=== PATIENT | female | born 1935 | race Caucasian/White ===

== ENCOUNTER 2017-08-12 13:39 | Inpatient (IN) | payer MEDICARE, OTHER, SELFPAY ==
[2017-08-03 11:21] VITALS: BP 116/54; PULSE 43; RESP 16; TEMP 36.9; O2SAT 96; BMI 44.6
--- NOTE | 2017-08-03 11:32 | SDCEKG_ITS ---
Test Reason : Blood Pressure : / mmHG Vent. Rate : 047 BPM Atrial Rate : 047 BPM P-R Int : 180 ms QRS Dur : 102 ms QT Int : 494 ms P-R-T Axes : 054 -18 003 degrees QTc Int : 437 ms Marked sinus bradycardia Low voltage QRS Cannot rule out Anterior infarct , age undetermined Abnormal ECG Confirmed by DEMETRIS CURRY, SHAUN ([id number]), film or videotape editor LIYA BECKETT ([id number]) on 08/06/2017 2:33:53 PM Referred By: Maksim Cevallos Confirmed By:SHAUN WILLSON MD
[2017-08-03 12:25] LABS: Hematocrit 39.3 % (37-47); Hemoglobin 12.3 g/dl (12.0-15.0); Mean Corp Hgb Conc 31.3 g/gl (32-36); Mean Corpuscular Hgb 30.1 pg (27.0-32.0); Mean Corpuscular Volume 96.1 fL (81-99); Mean Platelet Vol. 10.9 fl (6.2-12.0); Platelet Count 218 K/mm3 (150-450); RBC Distribution Width CV 13.3 % (11.6-14.6); RBC Distribution Width SD 46.1 fl (35.1-43.9); Red Blood Count 4.09 M/mm3 (4.2-5.4)
[2017-08-03 12:28] LABS: Scan Indicated on CBC? Y/N NO
[2017-08-03 12:50] LABS: Hemoglobin A1c 8.2 % (4.2-6.3)
[2017-08-03 13:08] LABS: BUN 22 mg/dL (7-18); Creatinine, Serum 1.27 mg/dL (0.55-1.02); Estimated Creatinine Clearance 29.71 ml/min; Glucose 205 mg/dL (74-106)
[2017-08-03 13:09] LABS: Anion Gap 5 (5-15); BUN/Creat Ratio 17.3 RATIO (10-20); Calcium,Total 10.2 mg/dL (8.5-10.1); Chloride 103 mmol/L (98-107); EST Glomerular Filtration Rate 43 mL/min (>60); Est Glom Filt Rate - Afr Amer 52 mL/min (>60); Potassium 4.8 mmol/L (3.5-5.1); Sodium Level 139 mmol/L (136-145); Thyroid Stim Hormone (TSH) 3.32 uIU/mL (0.358-3.74)
[2017-08-09 18:40] VITALS: BP 141/52; PULSE 54; RESP 18; TEMP 36.7; O2SAT 96
[2017-08-10] VITALS (22 sets, daily range): BP systolic 99–167; BP diastolic 33–80; PULSE 34–72; RESP 16–22; TEMP 36.5–36.9; O2SAT 91–97; BMI 44.6; BMI 44.2; BMI 44.1
--- NOTE | 2017-08-10 | BLB_PTH ---
PATIENT: CRISTOPHER LOZANO LOC: PCU U#:[id number] AGE/SX: 81/F ROOM: [facility] RE08/12/[address]: Dr. Maria Dolores Philip MD : [id number] BED: 1 DIS: 08/15/2017 SPEC #: [id number] RECD: 08/10/17 15:06 STATUS: FRANCHESCA KIMBERLYN #: [id number] PEYTON: 08/10/17 00:[address]: Maksim Cevallos DEPT: SURGICAL PATHOLOGY RECD BY: Gregory Burciaga ENTERED: 08/10/17 15:07 SP TYPE: TURB OTHR DR: Dr. Steven Ochoa DO Tissues: Urinary bladder, NOS Procedures: Surgery Specimen Level V HEADER OPERATION: Cystoscopy, TUR of bladder tumor PRE-OP DIAGNOSIS: Bladder tumor TISSUE SUBMITTED: Bladder tumor MICROSCOPIC DIAGNOSIS Urinary bladder, TUR: Papillary urothelial carcinoma. See cancer checklist below. AM:esmer 08/13/17 COMMENT BLADDER CANCER (TUR) SUMMARY: Procedure - TURBT Histologic type ? urothelial (transitional cell) carcinoma Associated epithelial lesions ? none identified Histologic grade ? low grade (WHO) Tumor configuration - papillary Adequacy of material for determining muscularis propria invasion - muscularis propria present and free of tumor. Lymph-Vascular invasion ? not identified Microscopic extent of tumor ? noninvasive papillary carcinoma Additional pathologic findings ? mild chronic inflammation. The above summary is in compliance with [employer] [place] [employer] (CAP) Cancer Protocols Checklist and [place] [employer] Committee on Cancer (AJCC), Staging Manual, 8th Ed. Reference is made to the patient?s previous bladder tumor, TUR ([id number]) in which papillary urothelial carcinoma (low-grade) was identified. Case has been reviewed in consultation with Dr. Elizabeth who concurs with the above diagnosis. IDC:SJ MICROSCOPIC DESCRIPTION Slides are reviewed. GROSS DESCRIPTION Received in fixative is one container labeled with the patient's name and designated bladder tumor. The specimen consists of multiple irregular fragments of light aldana soft tissue that in aggregate measure 2 x 1.5 x 0.2 cm. The specimen is totally submitted in one cassette. / PEACE:esmer 08/10/17 TC:0 CPT: 66887
[2017-08-10 11:11] LABS: Prothrombin Time Fingerstick 14.2 SEC (11.9-14.4)
[2017-08-10 11:36] LABS: Bedside Glucose 263 mg/dL (70-110)
--- NOTE | 2017-08-10 13:36 | PCM.DC.URO ---
Discharge Diet: Light diet - advance as tolerated Discharge Activity: Return to Normal Activity Call your doctor if your incision/area has: Continuous Slow Oozing, Sudden Increased Bleeding, Increased Pain/ Swelling, Increased Redness, Foul Smelling Discharge, Swelling at the incision site Suture Line Care: Avoid Pulling/Pushing, Avoid Pinching/Bending Additional Instructions: resume coumadin with no more blood in the urine. Allergies/Adverse Reactions: Allergies No Known Allergies Allergy (Verified 08/03/17 11:02) Medications to take at Discharge Furosemide 60 mg PO BID 02/04/16 Isosorbide Mononitrate [Isosorbide Mononitrate ER] 60 mg PO DAILY 02/04/16 Lisinopril 5 mg PO DAILY 02/04/16 Metformin HCl 500 mg PO DAILY 02/04/16 Simvastatin 40 mg PO QHS 02/04/16 Amlodipine [Norvasc] 5 mg PO DAILY 02/26/17 Calcium Carbonate/Vitamin D3 [Calcium 500-Vit D3 600 Caplet] 1 each PO LUNCH 02/26/17 Duloxetine HCl 60 mg PO BID 02/26/17 Insulin Aspart Protam & Aspart [Novolog Mix 70-30 Vial] 40 unit SQ BIDCM 02/26/17 Levothyroxine [Synthroid] 125 mcg PO DAILY 02/26/17 Metoprolol Tartrate [Lopressor (beta misty)] 50 mg PO BID 02/26/17 Nitroglycerin [Nitrostat] 0.4 mg SUBLINGUAL Q5M PRN 02/26/17 Omeprazole [Prilosec] 20 mg PO BID 02/26/17 Potassium Chloride [Klor-Con 10] 10 meq PO DAILY 02/26/17 Aspirin E.C. [Ecotrin] 81 mg PO DAILY@0800 08/03/17 Warfarin Sodium [Coumadin] 5 mg PO SUMOTUTHFR 08/03/17 Warfarin [Coumadin] 7.5 mg PO WESA 08/03/17 Primary Care Physician: Steven Ochoa DO [Primary Care Provider] - Please Follow Up With: Maksim Cevallos MD When: August 30 at 4pm
[2017-08-10] MEDS: Cefazolin 2 GM in 0.9% Normal Saline 100 ML IV (13:40)
--- NOTE | 2017-08-10 14:29 | OP.PCM_ITS ---
Problem List (1) Bladder cancer Status: Acute Qualifiers: Bladder location: neck Qualified Code(s): C67.5 - Malignant neoplasm of bladder neck Report of Operation Date of Procedure: 08/10/17 Pre-Operative Diagnosis: Bladder cancer at the bladder neck, about 2.5 cm. Post-Operative Diagnosis: Same Surgery/Procedure Performed:: Transurethral resection of bladder tumor 2.5 cm at the bladder neck circumferentially. Description of Surgical Findings:: 81-year-old female who and follow-up visit was found to have recurrence of her bladder tumor at the bladder neck she presents to the hospital today for surgery for resection of bladder tumor. Patient taken back to the operating room after smooth induction of general anesthesia she was placed in dorsal lithotomy position the urethra and vaginal area were prepped and draped in usual sterile fashion went into the bladder with a 21 [place] rigid cystourethroscope did a neal cystoscopy with 30 and 70? lens she had bladder tumor growing from around her bladder neck circumferentially around 2.5 cm in size and total. No other tumors seen within her bladder left to right ureteral orifice on involved. I then switched over to the resectoscope we used the small loop resectoscope and I resected this tumor circumferentially at the bladder neck tumors were removed from the bladder I then cauterized circumferentially at the bladder neck making sure I got all this resection sites obtained good hemostasis I then inspected the bladder again no other tumors are seen within the bladder to drain the bladder with a catheter in and put 40 cc of mitomycin-C into the bladder remove the catheter patient's anesthetic was reversed plan to see her back in a few weeks for checkup and then she will need follow-up surveillance cystoscopy in 3 months. Type of Anesthesia:: General Drains: none - Admit VTE Documentation VTE Present on Admission: No VTE Mechan Device Prophylaxis: SCD's VTE Pharm Prophylaxis ordered?: No Reason prophylaxis not ordered:: Treatment Not Indicated
--- NOTE | 2017-08-10 15:27 | EKG12_ITS ---
Test Reason : Blood Pressure : / mmHG Vent. Rate : 037 BPM Atrial Rate : 030 BPM P-R Int : 000 ms QRS Dur : 100 ms QT Int : 594 ms P-R-T Axes : 000 -20 021 degrees QTc Int : 466 ms Junctional bradycardia Low voltage QRS Abnormal ECG When compared with ECG of 03-AUG-2017 11:31, Junctional rhythm has replaced Sinus rhythm Confirmed by MARGARITA ALFARO ([id number]), editorial director LIYA BECKETT ([id number]) on 08/16/2017 2:43:32 PM Referred By: Maksim Cevallos Confirmed By:MARGARITA ALFARO
--- NOTE | 2017-08-10 16:50 | PCM.CONS.GEN ---
<Srinivas Souza - Last Filed: 08/10/17 16:50> Problem List (1) EKG abnormalities Status: Acute (2) Bladder cancer Status: Chronic Qualifiers: Bladder location: neck Qualified Code(s): C67.5 - Malignant neoplasm of bladder neck (3) HTN (hypertension) Status: Chronic Qualifiers: Hypertension type: essential hypertension Qualified Code(s): I10 - Essential (primary) hypertension (4) Hypothyroidism Status: Chronic Qualifiers: Hypothyroidism type: unspecified Qualified Code(s): E03.9 - Hypothyroidism, unspecified (5) Morbid obesity Status: Chronic (6) Diabetes type 2, uncontrolled Status: Chronic Qualifiers: Diabetes mellitus termite renewal inspector insulin use: with termite renewal inspector use Diabetes mellitus complication status: with neurologic complications Diabetes mellitus complication detail: with polyneuropathy Qualified Code(s): E11.42 - Type 2 diabetes mellitus with diabetic polyneuropathy (7) Sleep apnea Status: Chronic Qualifiers: Sleep apnea type: obstructive Qualified Code(s): G47.33 - Obstructive sleep apnea (adult) (pediatric) (8) Pulmonary HTN Status: Chronic (9) CAD, 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 5 (10) Ulcer of lower extremity due to diabetes Status: Chronic (11) GERD (gastroesophageal reflux disease) Status: Chronic Qualifiers: Esophagitis presence: without esophagitis Qualified Code(s): K21.9 - Gastro-esophageal reflux disease without esophagitis (12) IBS (irritable bowel syndrome) Status: Chronic Qualifiers: Irritable bowel syndrome type: unspecified Qualified Code(s): K58.9 - Irritable bowel syndrome without diarrhea (13) Hyperlipidemia Status: Chronic (14) 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 Status: Chronic Qualifiers: Congestive heart failure chronicity: chronic Qualified Code(s): I50.32 - Chronic diastolic (congestive) heart failure Reason for Consult Date of Consultation: 08/10/17 Reason for Consultation: Post op EKG changes History of Present Illness: The patient is a 81 year old F who underwent a TURBT with Dr. Mart arredondo, who is consulting us post op for new EKG changes. The patient is suspected to have bladder cancer and myomacin C has been instilled. During the surgery she developed new PVCs, and a post op EKG revealed bradycardia with a rate of 37 read as junctional. She had bradycardia in the 40s preop and reportedly her baseline pulse is slow, however this is slower than normal and the PVCs are new. There is also concern that she is unable to be weaned off of O2 at this time. She sats in the 100's, however is desaturating when taken off 2 liters by the recovery nurses. Otherwise she is very comfortable post op at this time. She denies CP. She says she feels mildly SOB. She has no abdominal pain. No dizziness/LH/Palp. She has a hx of CAD with prior CABG x 5, AF, CHF, VENESSA, IPS, T2DM, anxiety/depression, and some underlying dementia. She is somewhat confused recovering from sedation. [] Past Medical History Past Medical History (Chronic Problems): Chronic Problems Bladder cancer (Chronic) HTN (hypertension) (Chronic) Diabetic neuropathy (Chronic) Hypothyroidism (Chronic) Morbid obesity (Chronic) Diabetes type 2, uncontrolled (Chronic) Sleep apnea (Chronic) Pulmonary HTN (Chronic) CAD, multiple vessel (Chronic) S/P CABG x 5 Ulcer of lower extremity due to diabetes (Chronic) GERD (gastroesophageal reflux disease) (Chronic) IBS (irritable bowel syndrome) (Chronic) Hyperlipidemia (Chronic) 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 (Chronic) Allergies No Known Allergies Allergy (Verified 08/03/17 11:02) Home Medications: Ambulatory Orders Medication Instructions Recorded Furosemide 60 mg PO BID 02/04/16 Isosorbide Mononitrate [Isosorbide 60 mg PO DAILY 02/04/16 Mononitrate ER] Lisinopril 5 mg PO DAILY 02/04/16 Metformin HCl 500 mg PO DAILY 02/04/16 Simvastatin 40 mg PO QHS 02/04/16 Amlodipine [Norvasc] 5 mg PO DAILY 02/26/17 Calcium Carbonate/Vitamin D3 1 each PO LUNCH 02/26/17 [Calcium 500-Vit D3 600 Caplet] Duloxetine HCl 60 mg PO BID 02/26/17 Insulin Aspart Protam & Aspart 40 unit SQ BIDCM 02/26/17 [Novolog Mix 70-30 Vial] Levothyroxine [Synthroid] 125 mcg PO DAILY 02/26/17 Metoprolol Tartrate [Lopressor 50 mg PO BID 02/26/17 (beta misty)] Nitroglycerin [Nitrostat] 0.4 mg SUBLINGUAL Q5M PRN 02/26/17 Omeprazole [Prilosec] 20 mg PO BID 02/26/17 Potassium Chloride [Klor-Con 10] 10 meq PO DAILY 02/26/17 Aspirin E.C. [Ecotrin] 81 mg PO DAILY@0800 08/03/17 Warfarin Sodium [Coumadin] 5 mg PO SUMOTUTHFR 08/03/17 Warfarin [Coumadin] 7.5 mg PO WESA 08/03/17 Surgical History: angioplasty, cataract, coronary bypass surgery, - - Pilonidal cyst removed Psychiatric History: Anxiety, Depression RUG CLEANER History: No pertinent RUG CLEANER history Lives: With Family Smoking Status: Never smoker Tobacco Use: Non-smoker Alcohol: Occasional Drugs: None - *Family History Paternal History Items: Cancer, Heart Disease Maternal History Items: Heart Disease Review of Systems Constitutional: Denies: Chills, Fever, Weight Change HEENT: Denies: Head Aches, Sinus Congestion, Sinus Drainage Cardiovascular: Denies: Chest Pain, Chest Tightness, Palpitations Respiratory: Reports: Shortness of Breath. Denies: Cough, Pleuritic Pain, Shortness of breath at rest, Shortness of breath upon exertion, Sputum production, Wheezing Gastrointestinal: Denies: Abdominal Pain, Nausea, Vomiting Genitourinary: Denies: Dysuria Musculoskeletal: Denies: Joint Pain, Joint Tenderness Skin: Denies: Rash, Wounds Neurological: Denies: Numbness, Tingling, Focal weakness Psychiatric: Denies: Anxiety, Depression, Homicidal Ideations, Suicidal Ideations Hematologic/ Lymphatic: Denies: Easy Bruising, Easy Bleeding Patient Problems: Active and Suspected Problems EKG abnormalities (Acute) - Physical Exam General: Alert, Oriented x3, Cooperative HEENT: Atraumatic, PERRLA, EOMI, Normocephalic Neck: Supple, No JVD, Negative Carotid Bruits Lungs: Clear to auscultation, Normal air movement Cardiovascular: Regular rate, No murmurs Abdomen: Bowel Sounds Present, Soft, Non Tender Extremities: No edema, Capillary Refill Less than 3 Seconds Skin: No rashes, No breakdown Musculoskeletal: No Tenderness to Palpation of Joints or Extremities Neurological: Cranial nerves II-XII grossly intact Psych/Mental Status: Normal Affect, Appropriate, Alert and oriented to time, place, person, mood and affect Vital Signs Temp Pulse Resp BP Pulse Ox 97.7 F L 40 L 16 117/74 97 08/10/17 14:52 08/10/17 16:00 08/10/17 16:00 08/10/17 16:00 08/10/17 16:00 Oxygen Flow Rate (L/min) 2 Oxygen Delivery Method Nasal Cannula Weight: 114.305 kg Body Mass Index (BMI) 44.6 Finger Stick Blood Glucose 237 Laboratory Tests Past 24 Hrs 08/10/17 08/10/17 11:06 16:11 POC PT 14.2 INR 1.20 Troponin I Pending POC Glucose 08/10/17 11:07 POC Glucose 263 H Assessment/Plan Active and Suspected Problems EKG abnormalities (Acute) 1. Post op EKG changes - this includes Marked bradycardia, junctional rhythm, and PVCs. She used to follow Dr. Arauz, since his passing she has been seeing a PA in his office. She has a hx of preop bradycardia but not this marked. Repeat EKG in AM. Trend troponins. Obtain echocardiogram. Hold metoprolol. 2. Post op increased O2 demand - unable to be weaned post op. suspect atelectasis - IS, lungs are clear. If SOB provide Albuterol prn, duonebs. 3. Hx CAD with CABG x 5 - on imdur, norvasc, statin, asa, metoprolol, lisinopril 4. Hx PAF - warfarin and metoprolol. Trend INR. Maintain on tele. 5. VENESSA - request to bring CPAP in. If none at home consider autopap overnight. 6. DMt2 - hold metformin. Sliding scale 7. Hypothyroidism - check tsh 8. Bladder cancer s/p TURBT post op D#0 s/p myomycin C DVT ppx: SCDs check INR This patient was seen by Srinivas Souza PA-C under the supervision of Doctor Randall. <Ingrid Randall - Last Filed: 08/10/17 19:42> Reason for Consult History of Present Illness: The patient is a 81 year old F [] Past Medical History Allergies No Known Allergies Allergy (Verified 08/03/17 11:02) - Physical Exam Vital Signs Temp Pulse Resp BP Pulse Ox 97.9 F 48 L 16 149/57 H 92 08/10/17 17:46 08/10/17 17:46 08/10/17 17:46 08/10/17 17:46 08/10/17 17:46 Oxygen Flow Rate (L/min) 2 Oxygen Delivery Method Room Air Weight: 252 lb Body Mass Index (BMI) 44.6 Finger Stick Blood Glucose 225 Intake and Output for Last 24 Hours 08/08/17 08/09/17 08/10/17 23:59 23:59 23:59 Intake Total 600 / 600 Output Total 300 / 300 Balance 300 / 300 Laboratory Tests Past 24 Hrs 08/10/17 08/10/17 11:06 16:11 POC PT 14.2 INR 1.20 Troponin I < 0.02 POC Glucose 08/10/17 08/10/17 17:01 11:07 POC Glucose 225 H 263 H Assessment/Plan Hospitalist note: I am seeing this patient in conjunction with Srinivas Souza. I independently seen and examined the patient. Consultation above and EKGs reviewed and I agree with the above treatment plan. Patient underwent transurethral resection of bladder tumor today and postoperatively, patient has been bradycardic and hypoxic. Her heart rate has been as low as in the mid 30s. Her blood pressure remained stable., Her pulse ox was low and she required up to 6 L of oxygen but she denies any shortness of breath. At this time, her oxygen is down to 2 L. Patient seen and examined. She denied any chest pain or shortness of breath. She denied dizziness or lightheadedness. She denies syncope or presyncope. I reviewed her chart from the previous visits and her heart rate has been in the 40s and 50s but never been down to 30s. She is on beta-blockers and she did take her medication this morning. Her EKG reviewed and revealed sinus bradycardia. Other EKG revealed heart rate in the 30s with junctional rhythm. - Physical Exam General: Alert, Oriented x3, Cooperative, No apparent distress. HEENT: Atraumatic, PERRLA, EOMI. Neck: Supple, No JVD, Negative Carotid Bruits, Trachea Midline, Thyroid Normal. Lungs: Diminished breath sounds bilateral, otherwise clear, No rhonchi, No wheeze, No rales. Cardiovascular: Regular rate, bradycardia, Normal S1, Normal S2, PMI Normal. Abdomen: Bowel Sounds Present, Soft, Non Tender, Non-Distended, No Hepato-splenomegaly. Extremities: No clubbing, No cyanosis, No edema Skin: No rashes, No breakdown Neurological: Neuro grossly intact. Assessment and plan: #1 sinus bradycardia/junctional rhythm: EKG reviewed, revealed sinus bradycardia, no acute ischemic changes. First troponin is negative. Plan: Serial cardiac enzymes, repeat EKG tomorrow morning, check TSH, stat CBC and BMP, check serum magnesium, 2D echocardiogram. #2 hypoxia: Oxygenation has been improving and her oxygen requirement has been decreasing. Chest is clear to auscultation. #3 status post transurethral resection of bladder cancer: Postop day 0, urology is managing. #4 other chronic medical problems: Stable as mentioned above, continue current treatment being. This note was generated with [employer] dictation software. It may contain incorrect words, spelling, and punctuation that were not noted in checking the note before signing. Code Visit Inpatient E&M: 62421 Init Hosp L2
--- NOTE | 2017-08-10 17:04 | CON.PCM_ITS ---
<Srinivas Souza - Last Filed: 08/10/17 16:50> Problem List (1) EKG abnormalities Status: Acute (2) Bladder cancer Status: Chronic Qualifiers: Bladder location: neck Qualified Code(s): C67.5 - Malignant neoplasm of bladder neck (3) HTN (hypertension) Status: Chronic Qualifiers: Hypertension type: essential hypertension Qualified Code(s): I10 - Essential (primary) hypertension (4) Hypothyroidism Status: Chronic Qualifiers: Hypothyroidism type: unspecified Qualified Code(s): E03.9 - Hypothyroidism , unspecified (5) Morbid obesity Status: Chronic (6) Diabetes type 2, uncontrolled Status: Chronic Qualifiers: Diabetes mellitus nursing home 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 Diabetes mellitus complication status: with neurologic complications Diabetes mellitus complication detail: with polyneuropathy Qualified Code(s): E11.42 - Type 2 diabetes mellitus with diabetic polyneuropathy (7) Sleep apnea Status: Chronic Qualifiers: Sleep apnea type: obstructive Qualified Code(s): G47.33 - Obstructive sleep apnea (adult) (pediatric) (8) Pulmonary HTN Status: Chronic (9) CAD, 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 5 (10) Ulcer of lower extremity due to diabetes Status: Chronic (11) GERD (gastroesophageal reflux disease) Status: Chronic Qualifiers: Esophagitis presence: without esophagitis Qualified Code(s): K21.9 - Gastro -esophageal reflux disease without esophagitis (12) IBS (irritable bowel syndrome) Status: Chronic Qualifiers: Irritable bowel syndrome type: unspecified Qualified Code(s): K58.9 - Irritable bowel syndrome without diarrhea (13) Hyperlipidemia Status: Chronic (14) 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 Status: Chronic Qualifiers: Congestive heart failure chronicity: chronic Qualified Code(s): I50.32 - Chronic diastolic (congestive) heart failure Reason for Consult Date of Consultation: 08/10/17 Reason for Consultation: Post op EKG changes History of Present Illness: The patient is a 81 year old F who underwent a TURBT with Dr. Mart arredondo, who is consulting us post op for new EKG changes. The patient is suspected to have bladder cancer and myomacin C has been instilled. During the surgery she developed new PVCs, and a post op EKG revealed bradycardia with a rate of 37 read as junctional. She had bradycardia in the 40s preop and reportedly her baseline pulse is slow, however this is slower than normal and the PVCs are new. There is also concern that she is unable to be weaned off of O2 at this time. She sats in the 100's, however is desaturating when taken off 2 liters by the recovery nurses. Otherwise she is very comfortable post op at this time. She denies CP. She says she feels mildly SOB. She has no abdominal pain. No dizziness/LH/Palp. She has a hx of CAD with prior CABG x 5, AF, CHF, VENESSA, IPS, T2DM, anxiety/depression, and some underlying dementia. She is somewhat confused recovering from sedation. [] Past Medical History Past Medical History (Chronic Problems): Chronic Problems Bladder cancer (Chronic) HTN (hypertension) (Chronic) Diabetic neuropathy (Chronic) Hypothyroidism (Chronic) Morbid obesity (Chronic) Diabetes type 2, uncontrolled (Chronic) Sleep apnea (Chronic) Pulmonary HTN (Chronic) CAD, multiple vessel (Chronic) S/P CABG x 5 Ulcer of lower extremity due to diabetes (Chronic) GERD (gastroesophageal reflux disease) (Chronic) IBS (irritable bowel syndrome) (Chronic) Hyperlipidemia (Chronic) 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 (Chronic) Allergies No Known Allergies Allergy (Verified 08/03/17 11:02) Home Medications: Ambulatory Orders Medication Instructions Recorded Furosemide 60 mg PO BID 02/04/16 Isosorbide Mononitrate [Isosorbide 60 mg PO DAILY 02/04/16 Mononitrate ER] Lisinopril 5 mg PO DAILY 02/04/16 Metformin HCl 500 mg PO DAILY 02/04/16 Simvastatin 40 mg PO QHS 02/04/16 Amlodipine [Norvasc] 5 mg PO DAILY 02/26/17 Calcium Carbonate/Vitamin D3 1 each PO LUNCH 02/26/17 [Calcium 500-Vit D3 600 Caplet] Duloxetine HCl 60 mg PO BID 02/26/17 Insulin Aspart Protam & Aspart 40 unit SQ BIDCM 02/26/17 [Novolog Mix 70-30 Vial] Levothyroxine [Synthroid] 125 mcg PO DAILY 02/26/17 Metoprolol Tartrate [Lopressor 50 mg PO BID 02/26/17 (beta misty)] Nitroglycerin [Nitrostat] 0.4 mg SUBLINGUAL Q5M PRN 02/26/17 Omeprazole [Prilosec] 20 mg PO BID 02/26/17 Potassium Chloride [Klor-Con 10] 10 meq PO DAILY 02/26/17 Aspirin E.C. [Ecotrin] 81 mg PO DAILY@0800 08/03/17 Warfarin Sodium [Coumadin] 5 mg PO SUMOTUTHFR 08/03/17 Warfarin [Coumadin] 7.5 mg PO WESA 08/03/17 Surgical History: angioplasty, cataract, coronary bypass surgery, - - Pilonidal cyst removed Psychiatric History: Anxiety, Depression PHYSICAL LABORATORY ASSISTANT History: No pertinent PHYSICAL LABORATORY ASSISTANT history Lives: With Family Smoking Status: Never smoker Tobacco Use: Non-smoker Alcohol: Occasional Drugs: None - *Family History Paternal History Items: Cancer, Heart Disease Maternal History Items: Heart Disease Review of Systems Constitutional: Denies: Chills, Fever, Weight Change HEENT: Denies: Head Aches, Sinus Congestion, Sinus Drainage Cardiovascular: Denies: Chest Pain, Chest Tightness, Palpitations Respiratory: Reports: Shortness of Breath. Denies: Cough, Pleuritic Pain, Shortness of breath at rest, Shortness of breath upon exertion, Sputum production, Wheezing Gastrointestinal: Denies: Abdominal Pain, Nausea, Vomiting Genitourinary: Denies: Dysuria Musculoskeletal: Denies: Joint Pain, Joint Tenderness Skin: Denies: Rash, Wounds Neurological: Denies: Numbness, Tingling, Focal weakness Psychiatric: Denies: Anxiety, Depression, Homicidal Ideations, Suicidal Ideations Hematologic/ Lymphatic: Denies: Easy Bruising, Easy Bleeding Patient Problems: Active and Suspected Problems EKG abnormalities (Acute) - Physical Exam General: Alert, Oriented x3, Cooperative HEENT: Atraumatic, PERRLA, EOMI, Normocephalic Neck: Supple, No JVD, Negative Carotid Bruits Lungs: Clear to auscultation, Normal air movement Cardiovascular: Regular rate, No murmurs Abdomen: Bowel Sounds Present, Soft, Non Tender Extremities: No edema, Capillary Refill Less than 3 Seconds Skin: No rashes, No breakdown Musculoskeletal: No Tenderness to Palpation of Joints or Extremities Neurological: Cranial nerves II-XII grossly intact Psych/Mental Status: Normal Affect, Appropriate, Alert and oriented to time, place, person, mood and affect Vital Signs Temp Pulse Resp BP Pulse Ox 97.7 F L 40 L 16 117/74 97 08/10/17 14:52 08/10/17 16:00 08/10/17 16:00 08/10/17 16:00 08/10/17 16:00 Oxygen Flow Rate (L/min) 2 Oxygen Delivery Method Nasal Cannula Weight: 114.305 kg Body Mass Index (BMI) 44.6 Finger Stick Blood Glucose 237 Laboratory Tests Past 24 Hrs 08/10/17 08/10/17 11:06 16:11 POC PT 14.2 INR 1.20 Troponin I Pending POC Glucose 08/10/17 11:07 POC Glucose 263 H Assessment/Plan Active and Suspected Problems EKG abnormalities (Acute) 1. Post op EKG changes - this includes Marked bradycardia, junctional rhythm, and PVCs. She used to follow Dr. Arauz, since his passing she has been seeing a PA in his office. She has a hx of preop bradycardia but not this marked. Repeat EKG in AM. Trend troponins. Obtain echocardiogram. Hold metoprolol. 2. Post op increased O2 demand - unable to be weaned post op. suspect atelectasis - IS, lungs are clear. If SOB provide Albuterol prn, duonebs. 3. Hx CAD with CABG x 5 - on imdur, norvasc, statin, asa, metoprolol, lisinopril 4. Hx PAF - warfarin and metoprolol. Trend INR. Maintain on tele. 5. VENESSA - request to bring CPAP in. If none at home consider autopap overnight. 6. DMt2 - hold metformin. Sliding scale 7. Hypothyroidism - check tsh 8. Bladder cancer s/p TURBT post op D#0 s/p myomycin C DVT ppx: SCDs check INR This patient was seen by Srinivas Souza PA-C under the supervision of Doctor Randall. <Ingrid Randall - Last Filed: 08/10/17 19:42> Reason for Consult History of Present Illness: The patient is a 81 year old F [] Past Medical History Allergies No Known Allergies Allergy (Verified 08/03/17 11:02) - Physical Exam Vital Signs Temp Pulse Resp BP Pulse Ox 97.9 F 48 L 16 149/57 H 92 08/10/17 17:46 08/10/17 17:46 08/10/17 17:46 08/10/17 17:46 08/10/17 17:46 Oxygen Flow Rate (L/min) 2 Oxygen Delivery Method Room Air Weight: 252 lb Body Mass Index (BMI) 44.6 Finger Stick Blood Glucose 225 Intake and Output for Last 24 Hours 08/08/17 08/09/17 08/10/17 23:59 23:59 23:59 Intake Total 600 / 600 Output Total 300 / 300 Balance 300 / 300 Laboratory Tests Past 24 Hrs 08/10/17 08/10/17 11:06 16:11 POC PT 14.2 INR 1.20 Troponin I < 0.02 POC Glucose 08/10/17 08/10/17 17:01 11:07 POC Glucose 225 H 263 H Assessment/Plan Hospitalist note: I am seeing this patient in conjunction with Srinivas Souza. I independently seen and examined the patient. Consultation above and EKGs reviewed and I agree with the above treatment plan. Patient underwent transurethral resection of bladder tumor today and postoperatively, patient has been bradycardic and hypoxic. Her heart rate has been as low as in the mid 30s. Her blood pressure remained stable., Her pulse ox was low and she required up to 6 L of oxygen but she denies any shortness of breath. At this time, her oxygen is down to 2 L. Patient seen and examined. She denied any chest pain or shortness of breath. She denied dizziness or lightheadedness. She denies syncope or presyncope. I reviewed her chart from the previous visits and her heart rate has been in the 40s and 50s but never been down to 30s. She is on beta- blockers and she did take her medication this morning. Her EKG reviewed and revealed sinus bradycardia. Other EKG revealed heart rate in the 30s with junctional rhythm. - Physical Exam General: Alert, Oriented x3, Cooperative, No apparent distress. HEENT: Atraumatic, PERRLA, EOMI. Neck: Supple, No JVD, Negative Carotid Bruits, Trachea Midline, Thyroid Normal. Lungs: Diminished breath sounds bilateral, otherwise clear, No rhonchi, No wheeze, No rales. Cardiovascular: Regular rate, bradycardia, Normal S1, Normal S2, PMI Normal. Abdomen: Bowel Sounds Present, Soft, Non Tender, Non-Distended, No Hepato- splenomegaly. Extremities: No clubbing, No cyanosis, No edema Skin: No rashes, No breakdown Neurological: Neuro grossly intact. Assessment and plan: #1 sinus bradycardia/junctional rhythm: EKG reviewed, revealed sinus bradycardia , no acute ischemic changes. First troponin is negative. Plan: Serial cardiac enzymes, repeat EKG tomorrow morning, check TSH, stat CBC and BMP, check serum magnesium, 2D echocardiogram. #2 hypoxia: Oxygenation has been improving and her oxygen requirement has been decreasing. Chest is clear to auscultation. #3 status post transurethral resection of bladder cancer: Postop day 0, urology is managing. #4 other chronic medical problems: Stable as mentioned above, continue current treatment being. This note was generated with [employer] dictation software. It may contain incorrect words, spelling, and punctuation that were not noted in checking the note before signing. Code Visit Inpatient E&M: 79724 Init Hosp L2
[2017-08-10 17:06] LABS: Bedside Glucose 225 mg/dL (70-110)
--- NOTE | 2017-08-10 17:06 | ECHOD_ITS ---
Reason For Study: Abn EKG Procedure This was a 2D Doppler, Color Flow transthoracic echocardiogram. The study was technically difficult. Did not use Definity due to increased PAP. Exam performed portable in patient room. Left Ventricle Normal size and thickness. The estimated ejection fraction is 65 %. Stage 2 diastolic dysfunction. No regional wall motion abnormalities noted. Right Ventricle Mildly dilated right ventricle. Normal systolic function. Atria The left atrium is moderately enlarged. The right atrium is mildly enlarged. Normal atrial septum. Mitral Valve Mild diffuse mitral valve thickening. Severe mitral annular calcification extending into the posterior leaflet. Mild mitral valve stenosis. Tricuspid Valve Normal tricuspid valve. Mild (1+) tricuspid valve insufficiency. Right ventricular systolic pressure estimated to be 53 mmHg. Moderate pulmonary hypertension. Aortic Valve Trisinus/trileaflet aortic valve. Mild diffuse aortic valve thickening. Pulmonic Valve The pulmonic valve is not well visualized. Great Vessels Normal aortic root. Mild atherosclerosis of the aortic arch. Normal inferior vena cava. Inferior vena cava collapse with sniff. Pericardium/Pleural No pericardial effusion. MMode/2D Measurements & Calculations LVIDd: 4.6 cm IVSd: 1.1 cm LVOT diam: 2.0 cm LVIDs: 2.8 cm LVPWd: 0.90 cm LVOT area: 3.0 cm2 RVDd: 4.3 cm FS: 38.9 % Ao root diam: 2.5 cm LAV(MOD-bp): 67.5 ml LA A4 area: 22.8 cm2 LA dimension: 4.0 cm LAV(MOD-bp) Indexed: 31.7 ml/m2 LAV(MOD-sp2): 78.2 ml LAV(MOD-sp4): 59.1 ml RA A4 area: 20.5 cm2 Time Measurements MV dec time: 0.17 sec Doppler Measurements & Calculations MV E max dagoberto: 128.1 cm/sec Lat Peak E' Dagoberto: 8.8 cm/sec Med Peak E' Dagoberto: 5.7 cm/sec MV A max dagoberto: 119.1 cm/sec E/E' lat: 14.6 E/E' med: 22.6 MV E/A: 1.1 MV V2 max: 144.4 cm/sec MV P1/2t max dagoberto: 137.2 cm/sec Ao V2 max: 229.4 cm/sec MV max P.3 mmHg MV P1/2t: 107.8 msec Ao max P.1 mmHg MV V2 mean: 94.9 cm/sec MV dec slope: 372.7 cm/sec2 Ao V2 mean: 155.2 cm/sec MV mean P.9 mmHg MVA(P1/2t): 2.0 cm2 Ao mean P.8 mmHg MV V2 VTI: 49.6 cm Ao V2 VTI: 41.0 cm MVA(VTI): 1.8 cm2 SABINO(I,D): 2.2 cm2 SABINO(V,D): 1.9 cm2 LV V1 max: 140.2 cm/sec SV(LVOT): 90.6 ml PA V2 max: 135.3 cm/sec LV V1 max P.9 mmHg LV V1 mean P.8 mmHg LV V1 mean: 104.8 cm/sec LV V1 VTI: 29.8 cm TR max dagoberto: 346.4 cm/sec TR max P.0 mmHg Interpretation Summary The estimated ejection fraction is 65 %. Stage 2 diastolic dysfunction. The left atrium is moderately enlarged. Mild mitral valve stenosis. Mild (1+) tricuspid valve insufficiency. Right ventricular systolic pressure estimated to be 53 mmHg. Moderate pulmonary hypertension. The study was technically difficult. There is no comparison study available. Ordering Physician: Srinivas Souza Referring Physician: Steven Ochoa Performed By: Keara Gao RDCS, RVT
[2017-08-10 20:44] LABS: Absolute Lymphocyte Count 0.86 X10^3/ul (0.83-4.51); Absolute Neutrophil Count 9.3 X10^3/uL (2.0-7.7); Basophil# 0.02 X10^3/uL; Basophil% 0.2 % (0-1); Eosinophil# 0.08 X10^3/uL; Eosinophils% 0.7 % (0-5); Hematocrit 35.2 % (37-47); Hemoglobin 11.2 g/dl (12.0-15.0); Lymphocyte # 0.86 X10^3/ul (4.0); Lymphocyte % 7.8 % (19-41); Mean Corp Hgb Conc 31.8 g/gl (32-36); Mean Corpuscular Hgb 30.3 pg (27.0-32.0); Mean Corpuscular Volume 95.1 fL (81-99); Mean Platelet Vol. 10.9 fl (6.2-12.0); Monocyte# 0.74 X10^3/uL; Monocyte% 6.7 % (0-10); Neutrophil % 84.4 % (47-70); Platelet Count 252 K/mm3 (150-450); RBC Distribution Width CV 13.4 % (11.6-14.6); RBC Distribution Width SD 46.3 fl (35.1-43.9)
[2017-08-10 20:47] LABS: POSITIVE COUNT NO; POSITIVE DIFFERENTIAL NO; POSITIVE MORPHOLOGY NO
[2017-08-10 20:56] LABS: International Normalized Ratio 1.2; Prothrombin Time (Protime)PT. 15.3 SECONDS (11.7-14.9)
[2017-08-10] MEDS: 0.9% Normal Saline 1,000 ML 30 ML IV (21:02)
[2017-08-10 21:07] LABS: Anion Gap 8 (5-15); BUN 21 mg/dL (7-18); BUN/Creat Ratio 17.9 RATIO (10-20); Calcium,Total 9.6 mg/dL (8.5-10.1); Chloride 104 mmol/L (98-107); Creatinine, Serum 1.17 mg/dL (0.55-1.02); EST Glomerular Filtration Rate 47 mL/min (>60); Est Glom Filt Rate - Afr Amer 57 mL/min (>60); Estimated Creatinine Clearance 32.25 ml/min; Glucose 281 mg/dL (74-106); Potassium 3.9 mmol/L (3.5-5.1); Sodium Level 138 mmol/L (136-145)
[2017-08-10] MEDS: Acetaminophen 325 MG Tablet 650 MG PO (22:03)
[2017-08-10] MEDS: Pantoprazole Sodium 20 MG Tablet PO (22:03)
[2017-08-10] MEDS: Atorvastatin Calcium 20 MG Tablet PO (22:04)
[2017-08-10] MEDS: DULoxetine Hcl 60 MG Capsule PO (22:04)
[2017-08-10 22:10] LABS: Bedside Glucose 311 mg/dL (70-110)
[2017-08-11] VITALS (19 sets, daily range): BP systolic 120–174; BP diastolic 40–77; PULSE 70–85; RESP 16–20; TEMP 36.4–37.3; O2SAT 90–99; BMI 44.2
[2017-08-11] MEDS: hydrALAZINE 20 MG/ML Vial 10 MG IV (03:28)
--- NOTE | 2017-08-11 05:40 | NURSING ---
all patient care, medication administration, & documentation by SN Ami, supervised by this RN.
--- NOTE | 2017-08-11 05:55 | EKG12_ITS ---
Test Reason : AM EKG Blood Pressure : / mmHG Vent. Rate : 077 BPM Atrial Rate : 077 BPM P-R Int : 164 ms QRS Dur : 098 ms QT Int : 434 ms P-R-T Axes : 114 -34 049 degrees QTc Int : 491 ms Normal sinus rhythm Prolonged QT Abnormal ECG When compared with ECG of 10-AUG-2017 15:30, MANUAL COMPARISON REQUIRED, DATA IS UNCONFIRMED Confirmed by MARGARITA ALFARO ([id number]), coater carbon paper LIYA BECKETT ([id number]) on 08/16/2017 3:02:44 PM Referred By: Maksim Cevallos Confirmed By:MARGARITA ALFARO
[2017-08-11] MEDS: Levothyroxine 125 MCG Tablet PO (06:35)
[2017-08-11 06:41] LABS: Absolute Lymphocyte Count 0.65 X10^3/ul (0.83-4.51); Absolute Neutrophil Count 15.7 X10^3/uL (2.0-7.7); Basophil# 0.01 X10^3/uL; Basophil% 0.1 % (0-1); Hematocrit 31.5 % (37-47); Hemoglobin 10.5 g/dl (12.0-15.0); Lymphocyte # 0.65 X10^3/ul (4.0); Lymphocyte % 3.7 % (19-41); Mean Corp Hgb Conc 33.3 g/gl (32-36); Mean Corpuscular Hgb 30.8 pg (27.0-32.0); Mean Corpuscular Volume 92.4 fL (81-99); Monocyte# 0.96 X10^3/uL; Monocyte% 5.5 % (0-10); Neutrophil # 15.72 X10^3/uL (2.7-7.7); Neutrophil % 90.5 % (47-70); Platelet Count 239 K/mm3 (150-450); RBC Distribution Width CV 13.3 % (11.6-14.6); RBC Distribution Width SD 44.2 fl (35.1-43.9); Red Blood Count 3.41 M/mm3 (4.2-5.4); White Blood Count 17.4 K/mm3 (4.4-11.0)
[2017-08-11 06:42] LABS: POSITIVE COUNT NO; POSITIVE DIFFERENTIAL NO; POSITIVE MORPHOLOGY NO
[2017-08-11 06:44] LABS: International Normalized Ratio 1.3; Prothrombin Time (Protime)PT. 16.4 SECONDS (11.7-14.9)
[2017-08-11 07:05] LABS: Bedside Glucose 389 mg/dL (70-110)
[2017-08-11] MEDS: Ipratropium/Albuterol Sulfate 3 ML AMPUL.NEB INHALATION ×4 (07:17→18:49)
[2017-08-11 07:24] LABS: Anion Gap 10 (5-15); BUN 27 mg/dL (7-18); BUN/Creat Ratio 16.7 RATIO (10-20); Chloride 102 mmol/L (98-107); Creatinine, Serum 1.62 mg/dL (0.55-1.02); EST Glomerular Filtration Rate 33 mL/min (>60); Est Glom Filt Rate - Afr Amer 39 mL/min (>60); Estimated Creatinine Clearance 23.29 ml/min; Glucose 376 mg/dL (74-106); Potassium 4.3 mmol/L (3.5-5.1); Sodium Level 137 mmol/L (136-145); Thyroid Stim Hormone (TSH) 1.38 uIU/mL (0.358-3.74)
--- NOTE | 2017-08-11 10:05 | PN_ITS ---
Patient Problems: Active and Suspected Problems EKG abnormalities (Acute) Subjective: 81-year-old female, admitted to the hospital after transurethral resection of a bladder tumor. The bladder tumors at the bladder neck so she has a lot more bleeding than typical mostly because of bleeding from the bladder neck area she is a catheter in now the nurses have been irrigating but it still bloody. This morning I irrigated a lot of clots out and again I have the nurses irrigate the catheter with 40 cc of sterile water every hour or 2 to keep it from clotting and hopefully with time it will clear up. She is also admitted for episode of bradycardia bradycardia during anesthesia and some shortness of breath afterwards this seems to be stable at this point. - Physical Exam General: Alert, Oriented x3, Cooperative HEENT: Atraumatic, PERRLA, EOMI, Normocephalic Neck: Supple, No JVD, Negative Carotid Bruits Lungs: Clear to auscultation, Normal air movement Cardiovascular: Regular rate, No murmurs Abdomen: Bowel Sounds Present, Soft, Non Tender Extremities: No edema, Capillary Refill Less than 3 Seconds Skin: No rashes, No breakdown Musculoskeletal: No Tenderness to Palpation of Joints or Extremities Neurological: Cranial nerves II-XII grossly intact Psych/Mental Status: Normal Affect, Appropriate Vital Signs Temp Pulse Resp BP Pulse Ox 97.6 F L 77 18 140/49 H 90 08/11/17 04:38 08/11/17 07:19 08/11/17 07:19 08/11/17 04:38 08/11/17 07:19 Oxygen Flow Rate (L/min) 2 Oxygen Delivery Method Nasal Cannula Weight: 113.171 kg Body Mass Index (BMI) 44.1 Finger Stick Blood Glucose 225 Intake and Output for Last 24 Hours 08/09/17 08/10/17 08/11/17 23:59 23:59 23:59 Intake Total 803.3 / 803.3 252 / 252 Output Total 1100 / 1100 900 / 900 Balance -296.7 / -296.7 -648 / -648 Laboratory Tests Past 24 Hrs 08/10/17 08/10/17 08/10/17 11:06 16:11 20:26 WBC RBC Hgb Hct MCV MCH MCHC RDW RDW Differential Plt Count MPV Immature Gran % (Auto) Neut % (Auto) Lymph % (Auto) [place] % (Auto) Eos % (Auto) Baso % (Auto) Absolute Neuts (auto) Absolute Lymphs (auto) Total Counted POC PT 14.2 PT 15.3 H INR 1.20 1.2 Sodium Potassium Chloride Carbon Dioxide Anion Gap BUN Creatinine Estim Creat Clear Calc Est GFR (MDRD) Af Amer Est GFR (MDRD) Non-Af BUN/Creatinine Ratio Glucose Calcium Magnesium Troponin I < 0.02 TSH 08/10/17 08/10/17 08/11/17 20:26 20:26 00:08 WBC 11.0 RBC 3.70 L Hgb 11.2 L Hct 35.2 L MCV 95.1 MCH 30.3 MCHC 31.8 L RDW 13.4 RDW Differential 46.3 H Plt Count 252 MPV 10.9 Immature Gran % (Auto) 0.200 Neut % (Auto) 84.4 H Lymph % (Auto) 7.8 L [place] % (Auto) 6.7 Eos % (Auto) 0.7 Baso % (Auto) 0.2 Absolute Neuts (auto) 9.3 H Absolute Lymphs (auto) 0.86 Total Counted Not Reportable POC PT PT INR Sodium 138 Potassium 3.9 Chloride 104 Carbon Dioxide 26.0 Anion Gap 8 BUN 21 H Creatinine 1.17 H Estim Creat Clear Calc 32.25 Est GFR (MDRD) Af Amer 57 L Est GFR (MDRD) Non-Af 47 L BUN/Creatinine Ratio 17.9 Glucose 281 H Calcium 9.6 Magnesium 2.0 Troponin I < 0.02 < 0.02 TSH 08/11/17 08/11/17 08/11/17 06:26 06:26 06:26 WBC 17.4 H RBC 3.41 L Hgb 10.5 L Hct 31.5 L MCV 92.4 MCH 30.8 MCHC 33.3 RDW 13.3 RDW Differential 44.2 H Plt Count 239 MPV 11.0 Immature Gran % (Auto) 0.200 Neut % (Auto) 90.5 H Lymph % (Auto) 3.7 L [place] % (Auto) 5.5 Eos % (Auto) 0.0 Baso % (Auto) 0.1 Absolute Neuts (auto) 15.7 H Absolute Lymphs (auto) 0.65 L Total Counted Not Reportable POC PT PT 16.4 H INR 1.3 Sodium 137 Potassium 4.3 Chloride 102 Carbon Dioxide 25.0 Anion Gap 10 BUN 27 H Creatinine 1.62 H Estim Creat Clear Calc 23.29 Est GFR (MDRD) Af Amer 39 L Est GFR (MDRD) Non-Af 33 L BUN/Creatinine Ratio 16.7 Glucose 376 H Calcium 9.0 Magnesium Troponin I TSH 1.38 08/11/17 06:26 WBC RBC Hgb Hct MCV MCH MCHC RDW RDW Differential Plt Count MPV Immature Gran % (Auto) Neut % (Auto) Lymph % (Auto) [place] % (Auto) Eos % (Auto) Baso % (Auto) Absolute Neuts (auto) Absolute Lymphs (auto) Total Counted POC PT PT INR Sodium Potassium Chloride Carbon Dioxide Anion Gap BUN Creatinine Estim Creat Clear Calc Est GFR (MDRD) Af Amer Est GFR (MDRD) Non-Af BUN/Creatinine Ratio Glucose Calcium Magnesium Troponin I < 0.02 TSH POC Glucose 08/11/17 08/10/17 08/10/17 06:59 22:03 17:01 POC Glucose 389 H 311 H 225 H 08/10/17 11:07 POC Glucose 263 H Medical Necessity - Tobacco Use Smoking Status: Never smoker Tobacco Use: Non-smoker Assessment/Plan Active and Suspected Problems EKG abnormalities (Acute) 81-year-old female with a history of bladder cancer status post transurethral resection of the bladder tumor she has some postoperative bleeding fairly minor but given her age and comorbidities too much for her to handle on her own at home. She is going to continue with catheter drainage here asked the nurses to flush her Catheter with a catheter tip syringe 40 cc of sterile water about every hour to should clear up with over the next 24 hours. Anticipate discharge probably within 48 hours with a catheter. At this point her anticoagulants on hold.
[2017-08-11] MEDS: Isosorbide Mononitrate 60 MG Tablet PO (10:21)
[2017-08-11] MEDS: Calcium Carb/Vitamin D 1 TABLET Tablet PO (10:21)
[2017-08-11] MEDS: Furosemide 20 MG Tablet 60 MG PO (10:24)
[2017-08-11] MEDS: amLODIPine 5 MG Tablet PO (10:25)
[2017-08-11] MEDS: Lisinopril 5 MG Tablet PO (10:28)
[2017-08-11] MEDS: Pantoprazole Sodium 20 MG Tablet PO ×2 (10:29→21:10)
[2017-08-11 11:32] LABS: Bedside Glucose 395 mg/dL (70-110)
--- NOTE | 2017-08-11 12:00 | NURSING ---
BENÍTEZ BEING IRRIGATED BY STUDENT RN AND INSTRUCTOR.
--- NOTE | 2017-08-11 12:06 | PN_ITS ---
Patient Problems: Active and Suspected Problems EKG abnormalities (Acute) Subjective: She is feeling fair. She denied of any SOB, chest pain, dizziness, or palpitation. - Physical Exam General: Alert, Well developed HEENT: Atraumatic, Normocephalic Oral: Dry Mucosa Neck: Supple, No JVD Lungs: Clear to auscultation, Normal air movement, No rhonchi, No wheeze, No rales Cardiovascular: Regular rate, Regular Rhythm, Normal S1, Normal S2, Murmur - ROSELINE at LEFT sternal border to apex, 2/6. Abdomen: Bowel Sounds Present, Soft, Non Tender, Non-Distended, No Hepato- splenomegaly Extremities: No clubbing, No cyanosis, Edema - trace bilaterally. Skin: No rashes Musculoskeletal: No Tenderness to Palpation of Joints or Extremities, No Muscle Wasting Lymphatic: No Cervical, Supraclavicular, or Inguinal Adenopathy Neurological: Cranial nerves II-XII grossly intact, Neuro grossly intact Psych/Mental Status: Normal Affect Vital Signs Temp Pulse Resp BP Pulse Ox 99.1 F 76 18 128/50 H 96 08/11/17 10:40 08/11/17 10:48 08/11/17 11:24 08/11/17 10:40 08/11/17 10:40 Oxygen Flow Rate (L/min) 1 Oxygen Delivery Method Nasal Cannula Weight: 249 lb 7.989 oz Body Mass Index (BMI) 44.1 Finger Stick Blood Glucose 225 Intake and Output for Last 24 Hours 08/09/17 08/10/17 08/11/17 23:59 23:59 23:59 Intake Total 803.3 / 803.3 252 / 252 Output Total 1100 / 1100 900 / 900 Balance -296.7 / -296.7 -648 / -648 Laboratory Tests Past 24 Hrs 08/10/17 08/10/17 08/10/17 16:11 20:26 20:26 WBC RBC Hgb Hct MCV MCH MCHC RDW RDW Differential Plt Count MPV Immature Gran % (Auto) Neut % (Auto) Lymph % (Auto) Benton % (Auto) Eos % (Auto) Baso % (Auto) Absolute Neuts (auto) Absolute Lymphs (auto) Total Counted PT 15.3 H INR 1.2 Sodium 138 Potassium 3.9 Chloride 104 Carbon Dioxide 26.0 Anion Gap 8 BUN 21 H Creatinine 1.17 H Estim Creat Clear Calc 32.25 Est GFR (MDRD) Af Amer 57 L Est GFR (MDRD) Non-Af 47 L BUN/Creatinine Ratio 17.9 Glucose 281 H Calcium 9.6 Magnesium 2.0 Troponin I < 0.02 < 0.02 TSH 08/10/17 08/11/17 08/11/17 20:26 00:08 06:26 WBC 11.0 17.4 H RBC 3.70 L 3.41 L Hgb 11.2 L 10.5 L Hct 35.2 L 31.5 L MCV 95.1 92.4 MCH 30.3 30.8 MCHC 31.8 L 33.3 RDW 13.4 13.3 RDW Differential 46.3 H 44.2 H Plt Count 252 239 MPV 10.9 11.0 Immature Gran % (Auto) 0.200 0.200 Neut % (Auto) 84.4 H 90.5 H Lymph % (Auto) 7.8 L 3.7 L Benton % (Auto) 6.7 5.5 Eos % (Auto) 0.7 0.0 Baso % (Auto) 0.2 0.1 Absolute Neuts (auto) 9.3 H 15.7 H Absolute Lymphs (auto) 0.86 0.65 L Total Counted Not Reportable Not Reportable PT INR Sodium Potassium Chloride Carbon Dioxide Anion Gap BUN Creatinine Estim Creat Clear Calc Est GFR (MDRD) Af Amer Est GFR (MDRD) Non-Af BUN/Creatinine Ratio Glucose Calcium Magnesium Troponin I < 0.02 TSH 08/11/17 08/11/17 08/11/17 06:26 06:26 06:26 WBC RBC Hgb Hct MCV MCH MCHC RDW RDW Differential Plt Count MPV Immature Gran % (Auto) Neut % (Auto) Lymph % (Auto) Benton % (Auto) Eos % (Auto) Baso % (Auto) Absolute Neuts (auto) Absolute Lymphs (auto) Total Counted PT 16.4 H INR 1.3 Sodium 137 Potassium 4.3 Chloride 102 Carbon Dioxide 25.0 Anion Gap 10 BUN 27 H Creatinine 1.62 H Estim Creat Clear Calc 23.29 Est GFR (MDRD) Af Amer 39 L Est GFR (MDRD) Non-Af 33 L BUN/Creatinine Ratio 16.7 Glucose 376 H Calcium 9.0 Magnesium Troponin I < 0.02 TSH 1.38 POC Glucose 08/11/17 08/11/17 08/10/17 11:24 06:59 22:03 POC Glucose 395 H 389 H 311 H 08/10/17 17:01 POC Glucose 225 H Medical Necessity - Tobacco Use Smoking Status: Never smoker Tobacco Use: Non-smoker Assessment/Plan Active and Suspected Problems EKG abnormalities (Acute) Patient is a 81 years old female who underwent transurethral resection of bladder tumor on 08/11, found to have bradycardia and frequent PVC. Also, she had persisting hypoxia, unable to wean off from oxygen. Hospitalists were consulted. #1 Bradycardia / frequent PVC. She was found to have bradycardia of rate 37, mostly in 40's per telemetry soon after surgery. TSH is normal. She has history of atrial fibrillation, apparently paroxysmal, has been on metoprolol 50 mg po bid. Metoprolol is on hold. Heart rate are mostly in 60's to 70's but occasionally to 40's during the night. Electrolytes including Mg and Ca were within normal limits. 2D-echocardiogram is pending. Continue to hold metoprolol. #2 Hypoxia. With underling pulmonary hypertension, VENESSA, and diastolic dysfunction. She is mildly dehydrated. She is doing better. 96% with 1 liter. Continue oxygen prn. #3 SHARIF. Creatinine 1.17 to 1.62. She appears mildly dehydrated. IVF NS 2 liter over 20 hours. Repeat BMP in AM. Hold Lasix 60 mg bid for next 2 dosage. #4 VENESSA. #5 S/P transurethral resection of bladder cancer. #6 Mild dementia. She is probably at baseline. VTE prophylaxis: SCD only for hematuria. GI prophylaxis: PPI po. She is full code. Disposition: to be determined. Likely to SNF. Code Visit Inpatient E&M: 83534 Subs Hosp L3
[2017-08-11] MEDS: Bisacodyl 5 MG Tablet 10 MG PO (12:20)
[2017-08-11] MEDS: 0.9% Normal Saline 1,000 ML 100 ML IV ×2 (12:20→23:40)
[2017-08-11 16:15] LABS: Bedside Glucose 298 mg/dL (70-110)
[2017-08-11] MEDS: Atorvastatin Calcium 20 MG Tablet PO (21:10)
[2017-08-11] MEDS: DULoxetine Hcl 60 MG Capsule PO (21:10)
[2017-08-11 21:21] LABS: Bedside Glucose 157 mg/dL (70-110)
[2017-08-12] VITALS (15 sets, daily range): BP systolic 126–152; BP diastolic 43–67; PULSE 78–94; RESP 18–20; TEMP 36.7–37.4; O2SAT 91–97
--- NOTE | 2017-08-12 05:04 | NURSING ---
Irrigated flores catheter every 2 hours through night. Used 40-60 cc sterile water which instilled without difficulty, but withdrawing the water met with great resistance with only 10 cc return each time. Some small clots present. Flores draining well, color continues to be dark red. Pt. tolerating irrigation well.
[2017-08-12] MEDS: Levothyroxine 125 MCG Tablet PO (05:11)
[2017-08-12 06:36] LABS: Hematocrit 26.8 % (37-47); Hemoglobin 8.7 g/dl (12.0-15.0); Mean Corp Hgb Conc 32.5 g/gl (32-36); Mean Corpuscular Hgb 31.3 pg (27.0-32.0); Mean Corpuscular Volume 96.4 fL (81-99); Mean Platelet Vol. 10.7 fl (6.2-12.0); Platelet Count 245 K/mm3 (150-450); RBC Distribution Width CV 13.4 % (11.6-14.6); RBC Distribution Width SD 44.5 fl (35.1-43.9); Red Blood Count 2.78 M/mm3 (4.2-5.4); White Blood Count 18.1 K/mm3 (4.4-11.0)
[2017-08-12 06:40] LABS: Scan Indicated on CBC? Y/N NO
[2017-08-12] MEDS: Ipratropium/Albuterol Sulfate 3 ML AMPUL.NEB INHALATION ×3 (06:46→19:35)
[2017-08-12 06:56] LABS: Anion Gap 8 (5-15); BUN 24 mg/dL (7-18); Chloride 106 mmol/L (98-107); EST Glomerular Filtration Rate 33 mL/min (>60); Est Glom Filt Rate - Afr Amer 40 mL/min (>60); Estimated Creatinine Clearance 23.58 ml/min; Glucose 141 mg/dL (74-106); Potassium 3.8 mmol/L (3.5-5.1); Sodium Level 142 mmol/L (136-145)
[2017-08-12 07:36] LABS: Bedside Glucose 153 mg/dL (70-110)
[2017-08-12] MEDS: Isosorbide Mononitrate 60 MG Tablet PO (09:30)
[2017-08-12] MEDS: amLODIPine 5 MG Tablet PO (09:31)
[2017-08-12] MEDS: Lisinopril 5 MG Tablet PO (09:31)
[2017-08-12] MEDS: Pantoprazole Sodium 20 MG Tablet PO ×2 (09:31→22:09)
--- NOTE | 2017-08-12 10:26 | PCM.PROGNOTE ---
Patient Problems: Active and Suspected Problems EKG abnormalities (Acute) Subjective: She is feeling better today, but c/o leg cramps from SCD. No chest pain, dizziness, dyspnea, or palpitations. WBC is 18, low grade temp at 99.3. - Physical Exam General: Alert, Well developed HEENT: Atraumatic, Normocephalic Oral: Dry Mucosa Neck: Supple, No JVD Lungs: Clear to auscultation, Normal air movement, No rhonchi, No wheeze, No rales Cardiovascular: Regular rate, Regular Rhythm, Normal S1, Normal S2, Murmur - ROSELINE at LEFT sternal border to apex, 2/6. Abdomen: Bowel Sounds Present, Soft, Non Tender, Non-Distended, No Hepato-splenomegaly Extremities: No clubbing, No cyanosis, Edema - trace bilaterally, unchanged. Skin: No rashes Musculoskeletal: No Tenderness to Palpation of Joints or Extremities, No Muscle Wasting Lymphatic: No Cervical, Supraclavicular, or Inguinal Adenopathy Neurological: Cranial nerves II-XII grossly intact, Neuro grossly intact Psych/Mental Status: Somewhat anxious. - Physical Exam Vital Signs Temp Pulse Resp BP Pulse Ox 99.3 F H 91 20 H 147/67 H 94 08/12/17 08:10 08/12/17 08:10 08/12/17 08:10 08/12/17 08:10 08/12/17 08:10 Oxygen Flow Rate (L/min) 2 Oxygen Delivery Method Room Air Weight: 249 lb 7.989 oz Body Mass Index (BMI) 44.1 Finger Stick Blood Glucose 225 Intake and Output for Last 24 Hours 08/10/17 08/11/17 08/12/17 23:59 23:59 23:59 Intake Total 803.3 / 803.3 2022 891 / 891 Output Total 1100 / 1100 2300 / 2300 400 / 400 Balance -296.7 / -296.7 -277 / -277 491 / 491 Laboratory Tests Past 24 Hrs 08/12/17 08/12/17 06:21 06:21 WBC 18.1 H RBC 2.78 L Hgb 8.7 L Hct 26.8 L MCV 96.4 MCH 31.3 MCHC 32.5 RDW 13.4 RDW Differential 44.5 H Plt Count 245 MPV 10.7 Sodium 142 Potassium 3.8 Chloride 106 Carbon Dioxide 28.0 Anion Gap 8 BUN 24 H Creatinine 1.60 H Estim Creat Clear Calc 23.58 Est GFR (MDRD) Af Amer 40 L Est GFR (MDRD) Non-Af 33 L BUN/Creatinine Ratio 15.0 Glucose 141 H Calcium 9.0 POC Glucose 08/12/17 08/11/17 08/11/17 06:49 21:16 15:50 POC Glucose 153 H 157 H 298 H 08/11/17 11:24 POC Glucose 395 H Medical Necessity - Tobacco Use Smoking Status: Never smoker Tobacco Use: Non-smoker Assessment/Plan Active and Suspected Problems EKG abnormalities (Acute) Patient is a 81 years old female who underwent transurethral resection of bladder tumor on 08/11, found to have bradycardia and frequent PVC. Also, she had persisting hypoxia, unable to wean off from oxygen. Hospitalists were consulted. #1 Bradycardia / frequent PVC. She was found to have bradycardia of rate 37, mostly in 40's per telemetry soon after surgery. TSH is normal. Electrolytes including Mg and Ca were within normal limits. She has history of atrial fibrillation, apparently paroxysmal, has been on metoprolol 50 mg po bid. Metoprolol is on hold. Heart rate are mostly in 60's to 70's but occasionally to 40's during the night (08/11). HR in 80's to 90's, sinus rhythm. No episodes of bradycardia for 24 hours. (08/12). 2D echocardiogram done, showed preserved EF 65%, grade II diastolic dysfunction, moderate pulmonary HTN, LA enlargement, Mild MS, mild TR. She is doing better for bradycardia and PVC's. Continue to hold metoprolol. #2 Hypoxia. With underling pulmonary hypertension, VENESSA, and diastolic dysfunction. She is mildly dehydrated, IVF given. No change in respiratory status. oxygen saturation improved to 91 to 94% with room air. #3 SHARIF. Creatinine 1.17 to 1.62. IVF NS 2 liter given, creatinine about the same at 1.60. Continue to monitor BMP. She does not appear fluid overloaded. Lasix was withheld. Resume later today as planned. Plan for renal u/s. #4 VENESSA. She has not been compliant with CPAP at home with discomfort. #5 Hamaturia, S/P transurethral resection of bladder cancer. Hgb 10.5 to 8.7. Some of the drop is due to hemodilution, but she has persisting hematuria. Continue to monitor CBC. No chemoprophylaxis for VTE due to blood loss. #6 Blood loss anemia. See above. #7 Moderate pulmonary hypertension. #8 chronic diastolic CHF. She is not volume overloaded. #9 Mild dementia. She is probably at baseline. VTE prophylaxis: SCD only for hematuria. GI prophylaxis: PPI po. She is full code. Disposition: to be determined. Likely to SNF. Code Visit Inpatient E&M: 72220 Subs Hosp L3
--- NOTE | 2017-08-12 11:45 | NURSING ---
Dr. Cevallos in room, flushing catheter. flores clotted off, [address] Cevallos. Multiple bottles of sterile water was used and extracted to clear bladder of clots. Unsure of how many mls removed was actually urine.
[2017-08-12 12:06] LABS: Bedside Glucose 151 mg/dL (70-110)
[2017-08-12] MEDS: Calcium Carb/Vitamin D 1 TABLET Tablet PO (13:01)
--- NOTE | 2017-08-12 15:50 | NURSING ---
flores manually irrigated with sterile water until urine color is a ramirez red and no clots noted. same amount of was extracted that was placed.
--- NOTE | 2017-08-12 17:00 | NURSING ---
manually irrigated flores with sterile water. returned same amount that was used to flush. received numerous clots
[2017-08-12] MEDS: Furosemide 20 MG Tablet 60 MG PO (17:09)
[2017-08-12 17:20] LABS: Bedside Glucose 187 mg/dL (70-110)
[2017-08-12] MEDS: Atorvastatin Calcium 20 MG Tablet PO (22:09)
[2017-08-12] MEDS: DULoxetine Hcl 60 MG Capsule PO (22:09)
[2017-08-12 22:16] LABS: Bedside Glucose 84 mg/dL (70-110)
[2017-08-13] VITALS (18 sets, daily range): BP systolic 112–156; BP diastolic 35–65; PULSE 74–97; RESP 16–20; TEMP 36.4–37.8; O2SAT 18–99
[2017-08-13 05:59] LABS: Hematocrit 23.7 % (37-47); Hemoglobin 7.7 g/dl (12.0-15.0); Mean Corp Hgb Conc 32.5 g/gl (32-36); Mean Corpuscular Hgb 31.7 pg (27.0-32.0); Mean Corpuscular Volume 97.5 fL (81-99); Mean Platelet Vol. 10.8 fl (6.2-12.0); Platelet Count 232 K/mm3 (150-450); RBC Distribution Width CV 13.8 % (11.6-14.6); RBC Distribution Width SD 45.4 fl (35.1-43.9); Red Blood Count 2.43 M/mm3 (4.2-5.4); White Blood Count 11.4 K/mm3 (4.4-11.0)
[2017-08-13 06:04] LABS: Scan Indicated on CBC? Y/N NO
[2017-08-13 06:35] LABS: Anion Gap 7 (5-15); BUN 18 mg/dL (7-18); BUN/Creat Ratio 14.9 RATIO (10-20); Calcium,Total 9.4 mg/dL (8.5-10.1); Chloride 103 mmol/L (98-107); Creatinine, Serum 1.21 mg/dL (0.55-1.02); EST Glomerular Filtration Rate 46 mL/min (>60); Est Glom Filt Rate - Afr Amer 55 mL/min (>60); Estimated Creatinine Clearance 31.19 ml/min; Glucose 109 mg/dL (74-106); Potassium 3.5 mmol/L (3.5-5.1); Sodium Level 141 mmol/L (136-145)
[2017-08-13] MEDS: Levothyroxine 125 MCG Tablet PO (06:35)
[2017-08-13 06:46] LABS: Bedside Glucose 117 mg/dL (70-110)
[2017-08-13] MEDS: Ipratropium/Albuterol Sulfate 3 ML AMPUL.NEB INHALATION ×4 (06:58→18:57)
--- NOTE | 2017-08-13 07:59 | PCM.PN.BLA ---
Progress Note 81-year-old female status post transurethral resection of bladder tumors of the bladder neck she still having some hematuria and have the nurses continue with irrigation every hour to hopefully this will clear yesterday we did remove a lot of clots. On prior bladder tumor resection she did bleed a lot longer than expected. At this point she still not ready to be discharged.
--- NOTE | 2017-08-13 08:00 | US_ITS ---
STUDY: RENAL ULTRASOUND - COMPLETE REASON FOR EXAM: Female, 81 years old. History of acute renal failure. TECHNIQUE: Ultrasound evaluation of the kidneys was performed with real-time and static monroy-scale imaging. COMPARISON: None. FINDINGS: RIGHT KIDNEY: Normal location of the right kidney, which is normal in size. The right kidney measures 10.5 cm x 5.4 cm x 5.1 cm. There is a normal cortex of the right kidney. The renal cortex measures 1.6 cm. There is no right renal mass or cyst. There are no right renal calculi. There is mild hydronephrosis of the right kidney. DISTAL RIGHT URETER: There is non-visualization of the distal right ureter. There is no demonstrated right ureterovesical junction calculus. There is no demonstrated right ureteral jet. LEFT KIDNEY: Normal location of the left kidney, which is normal in size. The left kidney measures 11.5 cm x 4.2 cm x 6.0 cm. There is a normal cortex of the left kidney. The renal cortex measures 1.5 cm. There is no left renal mass or cyst. There are no left renal calculi. There is no left hydronephrosis. DISTAL LEFT URETER: There is non-visualization of the distal left ureter. There is no demonstrated left ureterovesical junction calculus. There is no demonstrated left ureteral jet. BLADDER: A Culp catheter is seen within the empty bladder. US/Kidney and Bladder IMPRESSION: Mild right hydronephrosis. Electronically Signed: Omega Lindsay MD at 11:11 EDT Tel [phone], Service support ,
[2017-08-13] MEDS: Furosemide 20 MG Tablet 60 MG PO ×2 (10:29→16:49)
[2017-08-13] MEDS: Lisinopril 5 MG Tablet PO (10:30)
[2017-08-13] MEDS: Glucerna Shake 120 ML LIQUID PO ×3 (10:30→16:48)
[2017-08-13] MEDS: amLODIPine 5 MG Tablet PO (10:30)
[2017-08-13] MEDS: Calcium Carb/Vitamin D 1 TABLET Tablet PO (10:30)
--- NOTE | 2017-08-13 10:40 | CASEMGMT ---
Face to Face with patient for initial transition planning/care coordination assessment. RN EDGAR introduced self and role at [facility], pt voices understanding and consents to assessment at this time. Pt sitting up in chair in no distress at this time. Pt A/O x4 at this time and answers questions appropriately at this time. Care providers, pharmacy, and demographics verified. See attached link. Pt voices no further concerns/needs at this time. Advised pt to ask for CM if any further questions/concerns/needs arise, voices understanding. PLAN: ZOEYD Angela BAILEY CM
--- NOTE | 2017-08-13 11:07 | PN_ITS ---
Patient Problems: Active and Suspected Problems EKG abnormalities (Acute) Subjective: Patient was seen and examined. Still has hematuria. Getting irrigation per urology. She had complaints of chest discomfort from her. Denies dizziness or palpitations. Objective: Physical Exam General: Alert, Well developed, pale, not jaundiced HEENT: Atraumatic, Normocephalic Oral: Dry Mucosa Neck: Supple, No JVD Lungs: Clear to auscultation, Normal air movement, No rhonchi, No wheeze, No rales Cardiovascular: Regular rate, Regular Rhythm, Normal S1, Normal S2, Murmur - ROSELINE at LEFT sternal border to apex, 2/6. Abdomen: Bowel Sounds Present, Soft, Non Tender, Non-Distended, No Hepato- splenomegaly, only catheter has deep red blood in the urine Extremities: No clubbing, No cyanosis, Edema - trace bilaterally, unchanged. Skin: No rashes Musculoskeletal: No Tenderness to Palpation of Joints or Extremities, No Muscle Wasting Lymphatic: No Cervical, Supraclavicular, or Inguinal Adenopathy Neurological: Cranial nerves II-XII grossly intact, Neuro grossly intact Psych/Mental Status: He is slightly anxious Vitals/I&O's: Vital Signs Temp Pulse Resp BP Pulse Ox 97.5 F L 78 18 156/35 H 96 08/13/17 09:00 08/13/17 09:00 08/13/17 09:00 08/13/17 09:00 08/13/17 09:00 Oxygen Flow Rate (L/min) 2 Oxygen Delivery Method Room Air Weight: 113.171 kg Body Mass Index (BMI) 44.1 Finger Stick Blood Glucose 225 Intake and Output for Last 24 Hours 08/11/17 08/12/17 08/13/17 23:59 23:59 23:59 Intake Total 2022 / 2022 1799 / 1799 0 / 0 Output Total 2300 / 2300 2100 / 2100 900 / 900 Balance -277 / -277 -301 / -301 -900 / -900 Laboratory Results 08/12/17 12:02: POC Glucose 151 H 08/12/17 16:56: POC Glucose 187 H 08/12/17 22:10: POC Glucose 84 08/13/17 05:25: WBC 11.4 H, RBC 2.43 L, Hgb 7.7 L, Hct 23.7 L, MCV 97.5, MCH 31.7, MCHC 32.5, RDW 13.8, RDW Differential 45.4 H, Plt Count 232, MPV 10.8 08/13/17 05:25: Sodium 141, Potassium 3.5, Chloride 103, Carbon Dioxide 31.0, Anion Gap 7, BUN 18, Creatinine 1.21 H, Estim Creat Clear Calc 31.19, Est GFR ( MDRD) Af Amer 55 L, Est GFR (MDRD) Non-Af 46 L, BUN/Creatinine Ratio 14.9, Glucose 109 H, Calcium 9.4 08/13/17 06:39: POC Glucose 117 H Current Medications Acetaminophen (Tylenol) 650 mg PO Q4H PRN PRN PRN Reason: Mild-Moderate Pain (1-5/10) Last Admin: 08/10/17 22:03 Dose: 650 mg Albuterol Sulfate (Ventolin Aerosols) 2.5 mg INHALATION Q2H PRN PRN PRN Reason: SOB &/OR WHEEZING Albuterol/Ipratropium (Duoneb) 3 ml INHALATION Q4HWA.RT [facility] Last Admin: 08/13/17 11:05 Dose: 3 ml Amlodipine Besylate (Norvasc) 5 mg PO DAILY [facility] Last Admin: 08/13/17 10:30 Dose: 5 mg Atorvastatin Calcium (Lipitor) 20 mg PO QHS [facility] Last Admin: 08/12/17 22:09 Dose: 20 mg Calcium/Vitamin D (Os-Gregory 500mg + D) 1 tablet PO LUNCH [facility] Last Admin: 08/13/17 10:30 Dose: 1 tablet Docusate Sodium (Colace) 200 mg PO DAILY PRN PRN PRN Reason: Constipation Duloxetine HCl (Cymbalta) 60 mg PO BID [facility] Last Admin: 08/13/17 10:43 Dose: Not Given Furosemide (Lasix) 60 mg PO BIDLX [facility] Last Admin: 08/13/17 10:29 Dose: 60 mg Hydralazine HCl (Apresoline Iv) 10 mg IV Q4H PRN PRN PRN Reason: SBP > 160 Last Admin: 08/11/17 03:28 Dose: 10 mg Insulin Aspart (Novolog Mix 70-30 Flexpen Syrn) [facility] Last Admin: 08/13/17 10:27 Dose: 40 units Insulin Aspart (Novolog Flexpen (Bkc)) 5 units SC TIDAC [facility] Last Admin: 08/13/17 10:26 Dose: 5 units Insulin Aspart (Novolog Flexpen (Bkc)) 0 units SC ACHS [facility] PRN Reason: Protocol Last Admin: 08/13/17 10:25 Dose: Not Given Isosorbide Mononitrate (Imdur) 60 mg PO DAILY [facility] Last Admin: 08/13/17 10:43 Dose: Not Given Levothyroxine Sodium (Synthroid) 125 mcg PO DAILY@0600 [facility] Last Admin: 08/13/17 06:35 Dose: 125 mcg Lisinopril (Zestril) 5 mg PO DAILY [facility] Last Admin: 08/13/17 10:30 Dose: 5 mg Nitroglycerin (Nitrostat) 0.4 mg SUBLINGUAL Q5M PRN PRN Reason: Chest Pain Nutritional Formula (Lactose Free) (Glucerna Shake) 120 ml PO TIDCM [facility] Last Admin: 08/13/17 10:30 Dose: 120 ml Pantoprazole Sodium (Protonix) 20 mg PO BID [facility] Last Admin: 08/13/17 10:43 Dose: Not Given Potassium Chloride (K-Dur) 10 meq PO DAILYCM [facility] Last Admin: 08/13/17 10:43 Dose: Not Given Sodium Chloride () 5 - 30 ml IV UD PRN PRN Reason: SALINE FLUSH Medical Necessity - Tobacco Use Smoking Status: Never smoker Tobacco Use: Non-smoker Assessment/Plan Active and Suspected Problems EKG abnormalities (Acute) 81 years old female who underwent transurethral resection of bladder tumor on 08/11, found to have bradycardia and frequent PVC, persistent hypoxia 1. Bradycardia/ frequent PVC, resolved, none on telemetry, metoprolol on hold, 2D echocardiogram done shows preserved EF 65%, grade II diastolic dysfunction, moderate pulmonary HTN, LA enlargement, Mild MS, mild TR. 2. Acute blood loss anemia secondary to hematuria from previous surgery for bladder cancer, hemoglobin 7.7, patient has ongoing loss, will transfuse 2 units of packed RBC, continue to monitor patient closely 3. Hematuria status post transurethral resection of bladder cancer, urology following, undergoing bladder irrigation. 4. Hypoxia, resolved, appears stable on room air 5. Acute kidney injury secondary to dehydration, and appears improved, the ultrasound shows mild right hydronephrosis, status post Culp catheter, will continue to monitor 6. VENESSA, noncompliant with CPAP 7. Chronic diastolic CHF, appears stable, on Lasix 8. Dementia, patient appears to be at her baseline 9. DVT prophylaxis with SCDs Code Visit Inpatient E&M: 87701 Subs Hosp L3
--- NOTE | 2017-08-13 11:55 | CASEMGMT ---
Received call from pt's son, Carlyle, and updated him on therapy notes per pt request at this time. Per Carlyle, he would like pt to be placed at [facility] on discharge per therapy recommendation for 24 hour supervision and needed for further skilled therapy. Referral to [facility] at this time, voices understanding. Advised pt's son, Carlyle, that pt would meet 3 inpatient midnight stay on Sunday, voices understanding. Carlyle voices no further concerns/needs at this time. Angela RN CM
[2017-08-13 12:11] LABS: Bedside Glucose 251 mg/dL (70-110)
--- NOTE | 2017-08-13 13:16 | CASEMGMT ---
ROME called Nola at [facility] and made a referral. ROME also faxed over referral information. Tita CARO MSW
[2017-08-13 17:10] LABS: Bedside Glucose 181 mg/dL (70-110)
[2017-08-13] MEDS: Atorvastatin Calcium 20 MG Tablet PO (21:51)
[2017-08-13] MEDS: Pantoprazole Sodium 20 MG Tablet PO (21:51)
[2017-08-13 22:11] LABS: Bedside Glucose 68 mg/dL (70-110)
[2017-08-13 23:00] LABS: Bedside Glucose 113 mg/dL (70-110)
[2017-08-14] VITALS (19 sets, daily range): BP systolic 122–157; BP diastolic 60–76; PULSE 67–88; RESP 14–18; TEMP 36.5–37.6; O2SAT 94–98
[2017-08-14 01:51] LABS: Bedside Glucose 94 mg/dL (70-110)
[2017-08-14] MEDS: 0.9% NaCl Peripheral Flush Adult/Peds IV ×2 (05:01→12:21)
[2017-08-14] MEDS: Levothyroxine 125 MCG Tablet PO (05:01)
[2017-08-14 06:03] LABS: Hematocrit 31.7 % (37-47); Hemoglobin 10.2 g/dl (12.0-15.0); Mean Corp Hgb Conc 32.2 g/gl (32-36); Mean Corpuscular Hgb 30.2 pg (27.0-32.0); Mean Corpuscular Volume 93.8 fL (81-99); Platelet Count 246 K/mm3 (150-450); RBC Distribution Width SD 55.6 fl (35.1-43.9); Red Blood Count 3.38 M/mm3 (4.2-5.4); White Blood Count 10.6 K/mm3 (4.4-11.0)
[2017-08-14 06:07] LABS: Scan Indicated on CBC? Y/N NO
[2017-08-14 06:12] LABS: Anion Gap 6 (5-15); BUN 15 mg/dL (7-18); BUN/Creat Ratio 15.3 RATIO (10-20); Calcium,Total 9.6 mg/dL (8.5-10.1); Chloride 103 mmol/L (98-107); Creatinine, Serum 0.98 mg/dL (0.55-1.02); EST Glomerular Filtration Rate 58 mL/min (>60); Est Glom Filt Rate - Afr Amer 70 mL/min (>60); Estimated Creatinine Clearance 38.51 ml/min; Glucose 127 mg/dL (74-106); Potassium 3.6 mmol/L (3.5-5.1); Sodium Level 139 mmol/L (136-145)
[2017-08-14 06:50] LABS: Bedside Glucose 136 mg/dL (70-110)
[2017-08-14] MEDS: Ipratropium/Albuterol Sulfate 3 ML AMPUL.NEB INHALATION ×4 (06:57→18:41)
--- NOTE | 2017-08-14 07:54 | PCM.PN.HOSP ---
Patient Problems: Active and Suspected Problems EKG abnormalities (Acute) Subjective: Patient was seen and examined. Transfuse 2 units of blood yesterday. Denies any new complaints. Been having Culp catheter irrigation every 1 hour by nurses, urine is now light pink. Denies any fever or chills or chest pain or dizziness. Was kept on 2 L of oxygen because she has sleep apnea and sleeps with oxygen at night. Objective: hysical Exam General: Alert, Well developed, pale, not jaundiced, obese HEENT: Atraumatic, Normocephalic Oral: Moist Mucosa Neck: Supple, No JVD Lungs: Diminished air entry at the lower lung bases, no rhonchi, No wheeze, No rales Cardiovascular: Regular rate, Regular Rhythm, Normal S1, Normal S2, Murmur - ROSELINE at LEFT sternal border to apex, 2/6. Abdomen: Bowel Sounds Present, Soft, Non Tender, Non-Distended, No Hepato-splenomegaly, only catheter has deep red blood in the urine Extremities: Bilateral +1-+2 edema Skin: No rashes Musculoskeletal: No Tenderness to Palpation of Joints or Extremities, No Muscle Wasting Lymphatic: No Cervical, Supraclavicular, or Inguinal Adenopathy Neurological: Cranial nerves II-XII grossly intact, Neuro grossly intact Psych/Mental Status: Full affect, no signs of anxiety Vitals/I&O's: Vital Signs Temp Pulse Resp BP Pulse Ox 98.8 F 74 16 157/65 H 97 08/14/17 03:16 08/14/17 07:22 08/14/17 06:57 08/14/17 03:16 08/14/17 06:57 Oxygen Flow Rate (L/min) 1 Oxygen Delivery Method Nasal Cannula Weight: 113.171 kg Body Mass Index (BMI) 44.1 Finger Stick Blood Glucose 225 Intake and Output for Last 24 Hours 08/12/17 08/13/17 08/14/17 23:59 23:59 23:59 Intake Total 1799 / 1799 1120 / 1120 908 / 908 Output Total 2099 / 2099 3360 / 3360 2525 / 2525 Balance -301 / -301 -2240 / -2240 -1617 / -1617 Laboratory Results 08/13/17 11:51: POC Glucose 251 H 08/13/17 16:43: POC Glucose 181 H 08/13/17 17:55: Blood Type B POSITIVE, Antibody Screen NEGATIVE, Crossmatch See Detail 08/13/17 21:48: POC Glucose 68 L 08/13/17 22:48: POC Glucose 113 H 08/14/17 01:48: POC Glucose 94 08/14/17 05:10: WBC 10.6, RBC 3.38 L, Hgb 10.2 L, Hct 31.7 L, MCV 93.8, MCH 30.2, MCHC 32.2, RDW 17.0 H, RDW Differential 55.6 H, Plt Count 246, MPV 11.0 08/14/17 05:10: Sodium 139, Potassium 3.6, Chloride 103, Carbon Dioxide 30.0, Anion Gap 6, BUN 15, Creatinine 0.98, Estim Creat Clear Calc 38.51, Est GFR (MDRD) Af Amer 70, Est GFR (MDRD) Non-Af 58 L, BUN/Creatinine Ratio 15.3, Glucose 127 H, Calcium 9.6 08/14/17 06:42: POC Glucose 136 H Current Medications Acetaminophen (Tylenol) 650 mg PO Q4H PRN PRN PRN Reason: Mild-Moderate Pain (1-5/10) Last Admin: 08/10/17 22:03 Dose: 650 mg Albuterol Sulfate (Ventolin Aerosols) 2.5 mg INHALATION Q2H PRN PRN PRN Reason: SOB &/OR WHEEZING Albuterol/Ipratropium (Duoneb) 3 ml INHALATION Q4HWA.RT [facility] Last Admin: 08/14/17 06:57 Dose: 3 ml Amlodipine Besylate (Norvasc) 5 mg PO DAILY [facility] Last Admin: 08/13/17 10:30 Dose: 5 mg Atorvastatin Calcium (Lipitor) 20 mg PO QHS [facility] Last Admin: 08/13/17 21:51 Dose: 20 mg Calcium/Vitamin D (Os-Gregory 500mg + D) 1 tablet PO LUNCH [facility] Last Admin: 08/13/17 10:30 Dose: 1 tablet Docusate Sodium (Colace) 200 mg PO DAILY PRN PRN PRN Reason: Constipation Duloxetine HCl (Cymbalta) 60 mg PO BID [facility] Last Admin: 08/13/17 21:51 Dose: Not Given Furosemide (Lasix) 60 mg PO BIDLX [facility] Last Admin: 08/13/17 16:49 Dose: 60 mg Hydralazine HCl (Apresoline Iv) 10 mg IV Q4H PRN PRN PRN Reason: SBP > 160 Last Admin: 08/11/17 03:28 Dose: 10 mg Insulin Aspart (Novolog Mix 70-30 Flexpen Syrn) 40 units SC BIDCM [facility] Last Admin: 08/13/17 16:48 Dose: 40 units Insulin Aspart (Novolog Flexpen (Bkc)) 5 units SC TIDAC [facility] Last Admin: 08/13/17 16:47 Dose: 5 units Insulin Aspart (Novolog Flexpen (Bkc)) 0 units SC ACHS [facility] PRN Reason: Protocol Last Admin: 08/13/17 21:51 Dose: Not Given Isosorbide Mononitrate (Imdur) 60 mg PO DAILY [facility] Last Admin: 08/13/17 10:43 Dose: Not Given Levothyroxine Sodium (Synthroid) 125 mcg PO DAILY@0600 [facility] Last Admin: 08/14/17 05:01 Dose: 125 mcg Lisinopril (Zestril) 5 mg PO DAILY [facility] Last Admin: 08/13/17 10:30 Dose: 5 mg Nitroglycerin (Nitrostat) 0.4 mg SUBLINGUAL Q5M PRN PRN Reason: Chest Pain Nutritional Formula (Lactose Free) (Glucerna Shake) 120 ml PO TIDCM [facility] Last Admin: 08/13/17 16:48 Dose: 120 ml Pantoprazole Sodium (Protonix) 20 mg PO BID [facility] Last Admin: 08/13/17 21:51 Dose: 20 mg Potassium [facility] ([facility]) [facility] Last Admin: 08/13/17 10:43 Dose: Not Given Sodium Chloride () 5 - 30 ml IV UD PRN PRN Reason: SALINE FLUSH Last Admin: 08/14/17 05:01 Dose: 10 ml Medical Necessity - Tobacco Use Smoking Status: Never smoker Tobacco Use: Non-smoker Assessment/Plan Active and Suspected Problems EKG abnormalities (Acute) 81 years old female who underwent transurethral resection of bladder tumor on 08/11, found to have bradycardia and frequent PVC, persistent hypoxia 1. Bradycardia/ frequent PVC, resolved, history of paroxysmal atrial fibrillation, in normal sinus rhythm, no acute events on telemetry, metoprolol on hold, heart rate has been in the 70s and 80s, no rebound tachycardia. 2D echocardiogram done shows preserved EF 65%, grade II diastolic dysfunction, moderate pulmonary HTN, LA enlargement, Mild MS, mild TR. 2. Acute blood loss anemia secondary to hematuria from previous surgery for bladder cancer, status post 2 units packed RBC transfusion, hemoglobin is 10.2, recheck in am. 3. Hematuria status post transurethral resection of bladder cancer, urology following, urine in the Culp catheter appears to be clearing with bladder irrigation. 4. Hypoxia, resolved, appears stable on room air 5. Acute kidney injury secondary to dehydration, resolved, renal ultrasound showed mild right hydronephrosis, status post Culp catheter 6. VENESSA, noncompliant with CPAP, on nocturnal oxygen 7. Chronic diastolic CHF, no signs of acute exacerbation, on lasix 8. Type II DM, blood sugars appears stable, on insulin aspart 70/30 40 units twice daily, Humulin NovoLog 5 units 3 times daily with insulin sliding scale, will continue Accu-Cheks 9. Dementia, patient appears to be at her baseline 10. DVT prophylaxis with SCDs 11. Disposition: Pending discharge to group home facility -[facility] Code Visit Inpatient E&M: 31660 Subs Hosp L2
--- NOTE | 2017-08-14 08:10 | PN_ITS ---
Patient Problems: Active and Suspected Problems EKG abnormalities (Acute) Subjective: Patient was seen and examined. Transfuse 2 units of blood yesterday. Denies any new complaints. Been having Culp catheter irrigation every 1 hour by nurses, urine is now light pink. Denies any fever or chills or chest pain or dizziness. Was kept on 2 L of oxygen because she has sleep apnea and sleeps with oxygen at night. Objective: hysical Exam General: Alert, Well developed, pale, not jaundiced, obese HEENT: Atraumatic, Normocephalic Oral: Moist Mucosa Neck: Supple, No JVD Lungs: Diminished air entry at the lower lung bases, no rhonchi, No wheeze, No rales Cardiovascular: Regular rate, Regular Rhythm, Normal S1, Normal S2, Murmur - ROSELINE at LEFT sternal border to apex, 2/6. Abdomen: Bowel Sounds Present, Soft, Non Tender, Non-Distended, No Hepato- splenomegaly, only catheter has deep red blood in the urine Extremities: Bilateral +1-+2 edema Skin: No rashes Musculoskeletal: No Tenderness to Palpation of Joints or Extremities, No Muscle Wasting Lymphatic: No Cervical, Supraclavicular, or Inguinal Adenopathy Neurological: Cranial nerves II-XII grossly intact, Neuro grossly intact Psych/Mental Status: Full affect, no signs of anxiety Vitals/I&O's: Vital Signs Temp Pulse Resp BP Pulse Ox 98.8 F 74 16 157/65 H 97 08/14/17 03:16 08/14/17 07:22 08/14/17 06:57 08/14/17 03:16 08/14/17 06:57 Oxygen Flow Rate (L/min) 1 Oxygen Delivery Method Nasal Cannula Weight: 113.171 kg Body Mass Index (BMI) 44.1 Finger Stick Blood Glucose 225 Intake and Output for Last 24 Hours 08/12/17 08/13/17 08/14/17 23:59 23:59 23:59 Intake Total 1799 / 1799 1120 / 1120 908 / 908 Output Total 2099 / 2099 3360 / 3360 2525 / 2525 Balance -301 / -301 -2240 / -2240 -1617 / -1617 Laboratory Results 08/13/17 11:51: POC Glucose 251 H 08/13/17 16:43: POC Glucose 181 H 08/13/17 17:55: Blood Type B POSITIVE, Antibody Screen NEGATIVE, Crossmatch See Detail 08/13/17 21:48: POC Glucose 68 L 08/13/17 22:48: POC Glucose 113 H 08/14/17 01:48: POC Glucose 94 08/14/17 05:10: WBC 10.6, RBC 3.38 L, Hgb 10.2 L, Hct 31.7 L, MCV 93.8, MCH 30.2 , MCHC 32.2, RDW 17.0 H, RDW Differential 55.6 H, Plt Count 246, MPV 11.0 08/14/17 05:10: Sodium 139, Potassium 3.6, Chloride 103, Carbon Dioxide 30.0, Anion Gap 6, BUN 15, Creatinine 0.98, Estim Creat Clear Calc 38.51, Est GFR ( MDRD) Af Amer 70, Est GFR (MDRD) Non-Af 58 L, BUN/Creatinine Ratio 15.3, Glucose 127 H, Calcium 9.6 08/14/17 06:42: POC Glucose 136 H Current Medications Acetaminophen (Tylenol) 650 mg PO Q4H PRN PRN PRN Reason: Mild-Moderate Pain (1-5/10) Last Admin: 08/10/17 22:03 Dose: 650 mg Albuterol Sulfate (Ventolin Aerosols) 2.5 mg INHALATION Q2H PRN PRN PRN Reason: SOB &/OR WHEEZING Albuterol/Ipratropium (Duoneb) 3 ml INHALATION Q4HWA.RT [facility] Last Admin: 08/14/17 06:57 Dose: 3 ml Amlodipine Besylate (Norvasc) 5 mg PO DAILY [facility] Last Admin: 08/13/17 10:30 Dose: 5 mg Atorvastatin Calcium (Lipitor) 20 mg PO QHS [facility] Last Admin: 08/13/17 21:51 Dose: 20 mg Calcium/Vitamin D (Os-Gregory 500mg + D) 1 tablet PO LUNCH [facility] Last Admin: 08/13/17 10:30 Dose: 1 tablet Docusate Sodium (Colace) 200 mg PO DAILY PRN PRN PRN Reason: Constipation Duloxetine HCl (Cymbalta) 60 mg PO BID [facility] Last Admin: 08/13/17 21:51 Dose: Not Given Furosemide (Lasix) 60 mg PO BIDLX [facility] Last Admin: 08/13/17 16:49 Dose: 60 mg Hydralazine HCl (Apresoline Iv) 10 mg IV Q4H PRN PRN PRN Reason: SBP > 160 Last Admin: 08/11/17 03:28 Dose: 10 mg Insulin Aspart (Novolog Mix 70-30 Flexpen Syrn) 40 units SC BIDCM [facility] Last Admin: 08/13/17 16:48 Dose: 40 units Insulin Aspart (Novolog Flexpen (Bkc)) 5 units SC TIDAC [facility] Last Admin: 08/13/17 16:47 Dose: 5 units Insulin Aspart (Novolog Flexpen (Bkc)) 0 units SC ACHS [facility] PRN Reason: Protocol Last Admin: 08/13/17 21:51 Dose: Not Given Isosorbide Mononitrate (Imdur) 60 mg PO DAILY [facility] Last Admin: 08/13/17 10:43 Dose: Not Given Levothyroxine Sodium (Synthroid) 125 mcg PO DAILY@0600 [facility] Last Admin: 08/14/17 05:01 Dose: 125 mcg Lisinopril (Zestril) 5 mg PO DAILY [facility] Last Admin: 08/13/17 10:30 Dose: 5 mg Nitroglycerin (Nitrostat) 0.4 mg SUBLINGUAL Q5M PRN PRN Reason: Chest Pain Nutritional Formula (Lactose Free) (Glucerna Shake) 120 ml PO TIDCM [facility] Last Admin: 08/13/17 16:48 Dose: 120 ml Pantoprazole Sodium (Protonix) 20 mg PO BID [facility] Last Admin: 08/13/17 21:51 Dose: 20 mg Potassium Chloride (K-Dur) [facility] Last Admin: 08/13/17 10:43 Dose: Not Given Sodium Chloride () 5 - 30 ml IV UD PRN PRN Reason: SALINE FLUSH Last Admin: 08/14/17 05:01 Dose: 10 ml Medical Necessity - Tobacco Use Smoking Status: Never smoker Tobacco Use: Non-smoker Assessment/Plan Active and Suspected Problems EKG abnormalities (Acute) 81 years old female who underwent transurethral resection of bladder tumor on 08/11, found to have bradycardia and frequent PVC, persistent hypoxia 1. Bradycardia/ frequent PVC, resolved, history of paroxysmal atrial fibrillation, in normal sinus rhythm, no acute events on telemetry, metoprolol on hold, heart rate has been in the 70s and 80s, no rebound tachycardia. 2D echocardiogram done shows preserved EF 65%, grade II diastolic dysfunction, moderate pulmonary HTN, LA enlargement, Mild MS, mild TR. 2. Acute blood loss anemia secondary to hematuria from previous surgery for bladder cancer, status post 2 units packed RBC transfusion, hemoglobin is 10.2, recheck in am. 3. Hematuria status post transurethral resection of bladder cancer, urology following, urine in the Culp catheter appears to be clearing with bladder irrigation. 4. Hypoxia, resolved, appears stable on room air 5. Acute kidney injury secondary to dehydration, resolved, renal ultrasound showed mild right hydronephrosis, status post Culp catheter 6. VENESSA, noncompliant with CPAP, on nocturnal oxygen 7. Chronic diastolic CHF, no signs of acute exacerbation, on lasix 8. Type II DM, blood sugars appears stable, on insulin aspart 70/30 40 units twice daily, Humulin NovoLog 5 units 3 times daily with insulin sliding scale, will continue Accu-Cheks 9. Dementia, patient appears to be at her baseline 10. DVT prophylaxis with SCDs 11. Disposition: Pending discharge to [facility] facility [facility] Code Visit Inpatient E&M: [id number] Subs Hosp L2
[2017-08-14] MEDS: Glucerna Shake 120 ML LIQUID PO ×3 (09:30→16:54)
[2017-08-14] MEDS: DULoxetine Hcl 60 MG Capsule PO ×2 (09:37→21:31)
[2017-08-14] MEDS: Lisinopril 5 MG Tablet PO (09:37)
[2017-08-14] MEDS: amLODIPine 5 MG Tablet PO (09:37)
[2017-08-14] MEDS: Furosemide 20 MG Tablet 60 MG PO ×2 (09:37→16:56)
[2017-08-14 11:16] LABS: Bedside Glucose 258 mg/dL (70-110)
--- NOTE | 2017-08-14 12:07 | CASEMGMT ---
ROME called [facility] and spoke with Nola. She said they can accept patient when she is ready. ROME told her will keep her updated when patient is ready. Tita CARO MSW
[2017-08-14] MEDS: Furosemide 20 MG/2 ML VIAL IV (12:16)
[2017-08-14] MEDS: Calcium Carb/Vitamin D 1 TABLET Tablet PO (12:18)
--- NOTE | 2017-08-14 15:10 | CHAPLAIN ---
Type of Pastoral Visit _x__ Initial Visit ___ Follow-up Visit ___ On-call Visit ___ General Patient Visit ___ Spiritual Assessment ___ Family Conference ___ Bereavement ___ Rapid Response ___ Code Blue ___ Other (describe below) Pastoral Care Referral From _x__ Patient ___ Family ___ Nurse ___ Physician ___ Major Appliance Assembly Supervisor ___ Figure Refinisher And Repairer ___ Other (describe below) Sacrament/Intervention _x__ Active listening ___ Anointing ___ Pentecostalism ___ Bereavement ___ Communion ___ Radha exploration ___ _x__ Life review _x__ Prayer ___ Reconciliation ___ Sacrament of Sick _x__ Supportive presence ___ Wedding ___ Other (describe below) Pastoral Comments
[2017-08-14 16:35] LABS: Bedside Glucose 304 mg/dL (70-110)
--- NOTE | 2017-08-14 17:57 | TREXTCAR_ITS ---
- Diet 08/11/17 06:55 Diabetic [Diet: Calorie Controlled] Is pt able to select menu?: Yes How many daily calories?: 1800 calorie - Routine Orders/Code Status Enema Frequency: Daily PRN Suppository Type: Dulcolax 10mg Suppository Frequency: Daily PRN Change Flores Catheter: leave flores in place, ok to flush as needed with 40cc sterile water. O2 Frequency: PRN Routine Lab Work: INR Code Status: Full Code - Wound(s) BLADDER Wound Type: Surgical Incision BLE Wound Type: multiple scabs - Suggestions for Active Care Change Position every (hours): 2 - hours - Therapies Weight Bearing: Full weight bearing Physical Therapy: Eval and Treat Occupational Therapy: Eval and Treat Speech Therapy: Eval and Treat - Problem/Diagnosis (1) Bladder cancer Status: Chronic Current Visit: Yes - Allergies/Procedures Done in Hospital Allergies/Adverse Reactions: Allergies No Known Allergies Allergy (Verified 08/03/17 11:02) - Type of Care/Length of Stay Estimated LOS: Convalescent Care Less Than 30 days Type of Care Needed: Skilled Rehab Potential: Good Prognosis: Good - Additional Orders/Day of Discharge Day of Discharge: 08/15/17 - Dietary and Speech Recommendations Dietitian Recommendations/Changes: May benefit from HOSPITALITY COORDINATOR evaluation if issues w/ chewing persist. - Follow Up Care Primary Care Physician: Steven Ochoa DO [Primary Care Provider] - Please Follow Up With: Maksim Cevallos MD When: August 30 at 4pm
[2017-08-14] MEDS: Atorvastatin Calcium 20 MG Tablet PO (21:32)
[2017-08-14 22:00] LABS: Bedside Glucose 267 mg/dL (70-110)
[2017-08-15 03:07] VITALS: PULSE 73
[2017-08-15 03:29] VITALS: BP 124/79; PULSE 71; RESP 14; TEMP 37.2; O2SAT 94
[2017-08-15] MEDS: Levothyroxine 125 MCG Tablet PO (05:28)
[2017-08-15 06:28] LABS: Absolute Lymphocyte Count 1.45 X10^3/ul (0.83-4.51); Absolute Neutrophil Count 5.9 X10^3/uL (2.0-7.7); Basophil# 0.02 X10^3/uL; Basophil% 0.2 % (0-1); Eosinophil# 0.52 X10^3/uL; Eosinophils% 5.7 % (0-5); Hematocrit 31.6 % (37-47); Lymphocyte # 1.45 X10^3/ul (4.0); Mean Corp Hgb Conc 31.6 g/gl (32-36); Mean Corpuscular Hgb 30.1 pg (27.0-32.0); Mean Corpuscular Volume 95.2 fL (81-99); Mean Platelet Vol. 10.7 fl (6.2-12.0); Monocyte% 12.2 % (0-10); Neutrophil # 5.94 X10^3/uL (2.7-7.7); Neutrophil % 65.7 % (47-70); Platelet Count 284 K/mm3 (150-450); RBC Distribution Width CV 16.7 % (11.6-14.6); RBC Distribution Width SD 54.8 fl (35.1-43.9); Red Blood Count 3.32 M/mm3 (4.2-5.4); White Blood Count 9.1 K/mm3 (4.4-11.0)
[2017-08-15 06:38] LABS: POSITIVE COUNT NO; POSITIVE DIFFERENTIAL NO; POSITIVE MORPHOLOGY NO
[2017-08-15 06:47] VITALS: PULSE 77; RESP 16; O2SAT 93
[2017-08-15] MEDS: Ipratropium/Albuterol Sulfate 3 ML AMPUL.NEB INHALATION ×2 (06:47→10:23)
[2017-08-15 06:52] VITALS: PULSE 73
[2017-08-15 06:53] LABS: Anion Gap 6 (5-15); BUN 13 mg/dL (7-18); BUN/Creat Ratio 14.3 RATIO (10-20); Calcium,Total 9.3 mg/dL (8.5-10.1); Chloride 100 mmol/L (98-107); Creatinine, Serum 0.91 mg/dL (0.55-1.02); EST Glomerular Filtration Rate 63 mL/min (>60); Est Glom Filt Rate - Afr Amer 76 mL/min (>60); Estimated Creatinine Clearance 41.47 ml/min; Glucose 176 mg/dL (74-106); Potassium 3.5 mmol/L (3.5-5.1); Sodium Level 140 mmol/L (136-145)
[2017-08-15 07:05] LABS: Bedside Glucose 225 mg/dL (70-110)
[2017-08-15] MEDS: Glucerna Shake 120 ML LIQUID PO (08:28)
[2017-08-15] MEDS: DULoxetine Hcl 60 MG Capsule PO (09:13)
[2017-08-15] MEDS: Furosemide 20 MG Tablet 60 MG PO (09:13)
[2017-08-15] MEDS: amLODIPine 5 MG Tablet PO (09:14)
[2017-08-15] MEDS: Lisinopril 5 MG Tablet PO (09:15)
--- NOTE | 2017-08-15 09:17 | CASEMGMT ---
[facility] Completed a convalescent on H[facility]. Called patient's son and let him know patient is ready for d/c. ROME told him she would go by [employer] and this is not covered by insurance and that it is approximately $45 base fee and then $4.50 per mile. He said that is fine. He did not need SW to call him with transport time. ROME called [facility] and arranged for patient to get picked up at 1030 via [facility]. ROME notified RN, patient, and nursing secretary. [facility] and left a message with Cynthia the veterans' coordinator as no one else was available. Plan: d/c to [facility] under skilled level of care on a convalescent stay. [facility] transported via [facility]. Tita CARO MSW
[2017-08-15 09:20] VITALS: BP 138/62; PULSE 67; RESP 18; TEMP 36.8; O2SAT 97
--- NOTE | 2017-08-15 09:34 | PCM.PN.HOSP ---
Patient Problems: Active and Suspected Problems EKG abnormalities (Acute) Subjective: Patient was seen and examined. Culp catheter has pinkish-brown urine. Denies any chest pain or dizziness or shortness of breath. Objective: Physical Exam General: Alert, Well developed, pale, not jaundiced, morbidly obese, not pale or jaundiced HEENT: Atraumatic, Normocephalic Oral: Moist Mucosa Neck: Supple, No JVD Lungs: Clear to auscultation, Normal air movement, No rhonchi, No wheeze, No rales Cardiovascular: Regular rate, Regular Rhythm, Normal S1, Normal S2, Murmur - ROSELINE at LEFT sternal border to apex, 2/6. Abdomen: Bowel Sounds Present, Soft, Non Tender, Non-Distended, No Hepato-splenomegaly, only catheter has deep red blood in the urine Extremities: No clubbing, No cyanosis, Edema - trace bilaterally, unchanged. Skin: No rashes Musculoskeletal: No Tenderness to Palpation of Joints or Extremities, No Muscle Wasting Lymphatic: No Cervical, Supraclavicular, or Inguinal Adenopathy Neurological: Cranial nerves II-XII grossly intact, Neuro grossly intact Psych/Mental Status: Normal affect Vitals/I&O's: Vital Signs Temp Pulse Resp BP Pulse Ox 99 F 73 16 124/79 H 93 08/15/17 03:29 08/15/17 06:52 08/15/17 06:47 08/15/17 03:29 08/15/17 06:47 Oxygen Flow Rate (L/min) 1 Oxygen Delivery Method Room Air Weight: 113.171 kg Body Mass Index (BMI) 44.1 Finger Stick Blood Glucose 225 Intake and Output for Last 24 Hours 08/13/17 08/14/17 08/15/17 23:59 23:59 23:59 Intake Total 1120 / 1120 1528 / 1528 480 / 480 Output Total 3360 / 3360 4925 / 4925 1950 / 1950 Balance -2240 / -2240 -3397 / -3397 -1470 / -1470 Laboratory Results 08/14/17 11:10: POC Glucose 258 H 08/14/17 16:30: POC Glucose 304 H 08/14/17 21:26: POC Glucose 267 H 08/15/17 05:35: WBC 9.1, RBC 3.32 L, Hgb 10.0 L, Hct 31.6 L, MCV 95.2, MCH 30.1, MCHC 31.6 L, RDW 16.7 H, RDW Differential 54.8 H, Plt Count 284, MPV 10.7, Immature Gran % (Auto) 0.200, Neut % (Auto) 65.7, Lymph % (Auto) 16.0 L, [place] % (Auto) 12.2 H, Eos % (Auto) 5.7 H, Baso % (Auto) 0.2, Absolute Neuts (auto) 5.9, Absolute Lymphs (auto) 1.45, Total Counted Not Reportable 08/15/17 05:35: Sodium 140, Potassium 3.5, Chloride 100, Carbon Dioxide 34.0 H, Anion Gap 6, BUN 13, Creatinine 0.91, Estim Creat Clear Calc 41.47, Est GFR (MDRD) Af Amer 76, Est GFR (MDRD) Non-Af 63, BUN/Creatinine Ratio 14.3, Glucose 176 H, Calcium 9.3 08/15/17 06:54: POC Glucose 225 H Current Medications Acetaminophen (Tylenol) 650 mg PO Q4H PRN PRN PRN Reason: Mild-Moderate Pain (1-5/10) Last Admin: 08/10/17 22:03 Dose: 650 mg Albuterol Sulfate (Ventolin Aerosols) 2.5 mg INHALATION Q2H PRN PRN PRN Reason: SOB &/OR WHEEZING Albuterol/Ipratropium (Duoneb) 3 ml INHALATION Q4HWA.RT [facility] Last Admin: 08/15/17 06:47 Dose: 3 ml Amlodipine Besylate (Norvasc) 5 mg PO DAILY [facility] Last Admin: 08/15/17 09:14 Dose: 5 mg Atorvastatin Calcium (Lipitor) 20 mg PO QHS [facility] Last Admin: 08/14/17 21:32 Dose: 20 mg Calcium/Vitamin D (Os-Gregory 500mg + D) 1 tablet PO LUNCH [facility] Last Admin: 08/14/17 12:18 Dose: 1 tablet Docusate Sodium (Colace) 200 mg PO DAILY PRN PRN PRN Reason: Constipation Duloxetine HCl (Cymbalta) 60 mg PO BID [facility] Last Admin: 08/15/17 09:13 Dose: 60 mg Furosemide (Lasix) 60 mg PO BIDLX [facility] Last Admin: 08/15/17 09:13 Dose: 60 mg Hydralazine HCl (Apresoline Iv) 10 mg IV Q4H PRN PRN PRN Reason: SBP > 160 Last Admin: 08/11/17 03:28 Dose: 10 mg Insulin Aspart (Novolog Mix 70-30 Flexpen Syrn) 40 units SC BIDCM [facility] Last Admin: 08/15/17 08:29 Dose: 40 units Insulin Aspart (Novolog Flexpen (Bkc)) 5 units SC TIDAC [facility] Last Admin: 08/15/17 08:28 Dose: 5 units Insulin Aspart (Novolog Flexpen (Bkc)) 0 units SC ACHS [facility] PRN Reason: Protocol Last Admin: 08/15/17 08:28 Dose: 2 units Isosorbide Mononitrate (Imdur) 60 mg PO DAILY [facility] Last Admin: 08/15/17 09:14 Dose: Not Given Levothyroxine Sodium (Synthroid) 125 mcg PO DAILY@0600 [facility] Last Admin: 08/15/17 05:28 Dose: 125 mcg Lisinopril (Zestril) 5 mg PO DAILY [facility] Last Admin: 08/15/17 09:15 Dose: 5 mg Nitroglycerin (Nitrostat) 0.4 mg SUBLINGUAL Q5M PRN PRN Reason: Chest Pain Nutritional Formula (Lactose Free) (Glucerna Shake) 120 ml PO TIDCM [facility] Last Admin: 08/15/17 08:28 Dose: 120 ml Pantoprazole Sodium (Protonix) 20 mg PO BID [facility] Last Admin: 08/15/17 09:14 Dose: Not Given Potassium Chloride (K-Dur) [facility] Last Admin: 08/15/17 08:30 Dose: Not Given Sodium Chloride () 5 - 30 ml IV UD PRN PRN Reason: SALINE FLUSH Last Admin: 08/14/17 12:21 Dose: 10 ml Medical Necessity - Tobacco Use Smoking Status: Never smoker Tobacco Use: Non-smoker Assessment/Plan Active and Suspected Problems EKG abnormalities (Acute) 81 years old female who underwent transurethral resection of bladder tumor on 08/11, found to have bradycardia and frequent PVC, persistent hypoxia 1. Bradycardia/ frequent PVC, resolved, history of paroxysmal atrial fibrillation, in normal sinus rhythm, no acute events on telemetry, would continue to hold metoprolol, needs to follow-up with cardiology in the outpatient. 2. Acute blood loss anemia secondary to hematuria from previous surgery for bladder cancer, status post 2 units packed RBC transfusion, hemoglobin is 10.0, this needs to be followed up in the outpatient within a week. 3. Hematuria status post transurethral resection of bladder cancer, urology following, and appears improved and slightly pink in the tube. 4. Hypoxia, resolved 5. Acute kidney injury secondary to dehydration, resolved, renal ultrasound showed mild right hydronephrosis, status post Culp catheter 6. VENESSA, noncompliant with CPAP, on nocturnal oxygen 7. Chronic diastolic CHF, no signs of acute exacerbation, on lasix 8. Type II DM, blood sugars appears stable, on insulin aspart 70/30 40 units twice daily, Humulin NovoLog 5 units 3 times daily with insulin sliding scale, will continue Accu-Cheks 9. Dementia, patient appears to be at her baseline 10. DVT prophylaxis with SCDs 11. Disposition: ok fro discharge from medical point of view. Code Visit Inpatient E&M: 92289 Subs Hosp L2
--- NOTE | 2017-08-15 09:39 | PN_ITS ---
Patient Problems: Active and Suspected Problems EKG abnormalities (Acute) Subjective: Patient was seen and examined. Culp catheter has pinkish-brown urine. Denies any chest pain or dizziness or shortness of breath. Objective: Physical Exam General: Alert, Well developed, pale, not jaundiced, morbidly obese, not pale or jaundiced HEENT: Atraumatic, Normocephalic Oral: Moist Mucosa Neck: Supple, No JVD Lungs: Clear to auscultation, Normal air movement, No rhonchi, No wheeze, No rales Cardiovascular: Regular rate, Regular Rhythm, Normal S1, Normal S2, Murmur - ROSELINE at LEFT sternal border to apex, 2/6. Abdomen: Bowel Sounds Present, Soft, Non Tender, Non-Distended, No Hepato- splenomegaly, only catheter has deep red blood in the urine Extremities: No clubbing, No cyanosis, Edema - trace bilaterally, unchanged. Skin: No rashes Musculoskeletal: No Tenderness to Palpation of Joints or Extremities, No Muscle Wasting Lymphatic: No Cervical, Supraclavicular, or Inguinal Adenopathy Neurological: Cranial nerves II-XII grossly intact, Neuro grossly intact Psych/Mental Status: Normal affect Vitals/I&O's: Vital Signs Temp Pulse Resp BP Pulse Ox 99 F 73 16 124/79 H 93 08/15/17 03:29 08/15/17 06:52 08/15/17 06:47 08/15/17 03:29 08/15/17 06:47 Oxygen Flow Rate (L/min) 1 Oxygen Delivery Method Room Air Weight: 113.171 kg Body Mass Index (BMI) 44.1 Finger Stick Blood Glucose 225 Intake and Output for Last 24 Hours 08/13/17 08/14/17 08/15/17 23:59 23:59 23:59 Intake Total 1120 / 1120 1528 / 1528 480 / 480 Output Total 3360 / 3360 4925 / 4925 1950 / 1950 Balance -2240 / -2240 -3397 / -3397 -1470 / -1470 Laboratory Results 08/14/17 11:10: POC Glucose 258 H 08/14/17 16:30: POC Glucose 304 H 08/14/17 21:26: POC Glucose 267 H 08/15/17 05:35: WBC 9.1, RBC 3.32 L, Hgb 10.0 L, Hct 31.6 L, MCV 95.2, MCH 30.1 , MCHC 31.6 L, RDW 16.7 H, RDW Differential 54.8 H, Plt Count 284, MPV 10.7, Immature Gran % (Auto) 0.200, Neut % (Auto) 65.7, Lymph % (Auto) 16.0 L, Ward % (Auto) 12.2 H, Eos % (Auto) 5.7 H, Baso % (Auto) 0.2, Absolute Neuts (auto) 5.9 , Absolute Lymphs (auto) 1.45, Total Counted Not Reportable 08/15/17 05:35: Sodium 140, Potassium 3.5, Chloride 100, Carbon Dioxide 34.0 H, Anion Gap 6, BUN 13, Creatinine 0.91, Estim Creat Clear Calc 41.47, Est GFR ( MDRD) Af Amer 76, Est GFR (MDRD) Non-Af 63, BUN/Creatinine Ratio 14.3, Glucose 176 H, Calcium 9.3 08/15/17 06:54: POC Glucose 225 H Current Medications Acetaminophen (Tylenol) 650 mg PO Q4H PRN PRN PRN Reason: Mild-Moderate Pain (1-5/10) Last Admin: 08/10/17 22:03 Dose: 650 mg Albuterol Sulfate (Ventolin Aerosols) 2.5 mg INHALATION Q2H PRN PRN PRN Reason: SOB &/OR WHEEZING Albuterol/Ipratropium (Duoneb) 3 ml INHALATION Q4HWA.RT [facility] Last Admin: 08/15/17 06:47 Dose: 3 ml Amlodipine Besylate (Norvasc) 5 mg PO DAILY [facility] Last Admin: 08/15/17 09:14 Dose: 5 mg Atorvastatin Calcium (Lipitor) 20 mg PO QHS [facility] Last Admin: 08/14/17 21:32 Dose: 20 mg Calcium/Vitamin D (Os-Gregory 500mg + D) 1 tablet PO LUNCH [facility] Last Admin: 08/14/17 12:18 Dose: 1 tablet Docusate Sodium (Colace) 200 mg PO DAILY PRN PRN PRN Reason: Constipation Duloxetine HCl (Cymbalta) 60 mg PO BID [facility] Last Admin: 08/15/17 09:13 Dose: 60 mg Furosemide (Lasix) 60 mg PO BIDLX [facility] Last Admin: 08/15/17 09:13 Dose: 60 mg Hydralazine HCl (Apresoline Iv) 10 mg IV Q4H PRN PRN PRN Reason: SBP > 160 Last Admin: 08/11/17 03:28 Dose: 10 mg Insulin Aspart (Novolog Mix 70-30 Flexpen Syrn) 40 units SC BIDCM [facility] Last Admin: 08/15/17 08:29 Dose: 40 units Insulin Aspart (Novolog Flexpen (Bkc)) 5 units SC TIDAC [facility] Last Admin: 08/15/17 08:28 Dose: 5 units Insulin Aspart (Novolog Flexpen (Bkc)) 0 units SC ACHS [facility] PRN Reason: Protocol Last Admin: 08/15/17 08:28 Dose: 2 units Isosorbide Mononitrate (Imdur) 60 mg PO DAILY [facility] Last Admin: 08/15/17 09:14 Dose: Not Given Levothyroxine Sodium (Synthroid) 125 mcg PO DAILY@0600 [facility] Last Admin: 08/15/17 05:28 Dose: 125 mcg Lisinopril (Zestril) 5 mg PO DAILY [facility] Last Admin: 08/15/17 09:15 Dose: 5 mg Nitroglycerin (Nitrostat) 0.4 mg SUBLINGUAL Q5M PRN PRN Reason: Chest Pain Nutritional Formula (Lactose Free) (Glucerna Shake) 120 ml PO TIDCM [facility] Last Admin: 08/15/17 08:28 Dose: 120 ml Pantoprazole Sodium (Protonix) 20 mg PO BID [facility] Last Admin: 08/15/17 09:14 Dose: Not Given Potassium [facility]Dur) [facility] Last Admin: 08/15/17 08:30 Dose: Not Given Sodium Chloride () 5 - 30 ml IV UD PRN PRN Reason: SALINE FLUSH Last Admin: 08/14/17 12:21 Dose: 10 ml Medical Necessity - Tobacco Use Smoking Status: Never smoker Tobacco Use: Non-smoker Assessment/Plan Active and Suspected Problems EKG abnormalities (Acute) 81 years old female who underwent transurethral resection of bladder tumor on 08/11, found to have bradycardia and frequent PVC, persistent hypoxia 1. Bradycardia/ frequent PVC, resolved, history of paroxysmal atrial fibrillation, in normal sinus rhythm, no acute events on telemetry, would continue to hold metoprolol, needs to follow-up with cardiology in the outpatient. 2. Acute blood loss anemia secondary to hematuria from previous surgery for bladder cancer, status post 2 units packed RBC transfusion, hemoglobin is 10.0, this needs to be followed up in the outpatient within a week. 3. Hematuria status post transurethral resection of bladder cancer, urology following, and appears improved and slightly pink in the tube. 4. Hypoxia, resolved 5. Acute kidney injury secondary to dehydration, resolved, renal ultrasound showed mild right hydronephrosis, status post Culp catheter 6. VENESSA, noncompliant with CPAP, on nocturnal oxygen 7. Chronic diastolic CHF, no signs of acute exacerbation, on lasix 8. Type II DM, blood sugars appears stable, on insulin aspart 70/30 40 units twice daily, Humulin NovoLog 5 units 3 times daily with insulin sliding scale, will continue Accu-Cheks 9. Dementia, patient appears to be at her baseline 10. DVT prophylaxis with SCDs 11. Disposition: ok fro discharge from medical point of view. Code Visit Inpatient E&M: 82051 Subs Hosp L2
--- NOTE | 2017-08-15 09:43 | NURSING ---
called report to Alexandra @ [facility]. Transport to pick pt up @ [phone]
[2017-08-15 10:23] VITALS: PULSE 82; RESP 18
--- NOTE | 2017-08-20 09:06 | PCM.DC.SUM ---
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 post op needed oxygen and had some sob admitted then developed hematuria and bleeding required manual irragation. had to increase the size of the catheter, finally after few days the hematuria clear her sob resolved but because of weakness was d,c to skilled facillity with catheter for further rehab. Discharge Diet: Light diet - advance as tolerated Discharge Activity: Return to Normal Activity Call your doctor if your incision/area has: Continuous Slow Oozing, Sudden Increased Bleeding, Increased Pain/ Swelling, Increased Redness, Foul Smelling Discharge, Swelling at the incision site Suture Line Care: Avoid Pulling/Pushing, Avoid Pinching/Bending Home Medications: Medications to take at Discharge Furosemide 60 mg PO BID 02/04/16 Isosorbide Mononitrate [Isosorbide Mononitrate ER] 60 mg PO DAILY 02/04/16 Lisinopril 5 mg PO DAILY 02/04/16 Metformin HCl 500 mg PO DAILY 02/04/16 Simvastatin 40 mg PO QHS 02/04/16 Amlodipine [Norvasc] 5 mg PO DAILY 02/26/17 Calcium Carbonate/Vitamin D3 [Calcium 500-Vit D3 600 Caplet] 1 each PO LUNCH 02/26/17 Duloxetine HCl 60 mg PO BID 02/26/17 Insulin Aspart Protam & Aspart [Novolog Mix 70-30 Vial] 40 unit SQ BIDCM 02/26/17 Levothyroxine [Synthroid] 125 mcg PO DAILY 02/26/17 Metoprolol Tartrate [Lopressor (beta misty)] 50 mg PO BID 02/26/17 Nitroglycerin [Nitrostat] 0.4 mg SUBLINGUAL Q5M PRN 02/26/17 Omeprazole [Prilosec] 20 mg PO BID 02/26/17 Potassium Chloride [Klor-Con 10] 10 meq PO DAILY 02/26/17 Primary Care Physician: Steven Ochoa DO [Primary Care Provider] - Please Follow Up With: Maksim Cevallos MD When: August 30 at 4pm Additional Instructions: resume coumadin with no more blood in the urine. Medical Necessity - Tobacco Use Smoking Status: Never smoker Tobacco Use: Non-smoker Meaningful Use Info Meaningful Use Diagnoses (Choose all that apply): None applicable
--- NOTE | 2017-08-20 09:10 | DS.PCM_ITS ---
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 post op needed oxygen and had some sob admitted then developed hematuria and bleeding required manual irragation. had to increase the size of the catheter, finally after few days the hematuria clear her sob resolved but because of weakness was d,c to skilled facillity with catheter for further rehab. Discharge Diet: Light diet - advance as tolerated Discharge Activity: Return to Normal Activity Call your doctor if your incision/area has: Continuous Slow Oozing, Sudden Increased Bleeding, Increased Pain/ Swelling, Increased Redness, Foul Smelling Discharge, Swelling at the incision site Suture Line Care: Avoid Pulling/Pushing, Avoid Pinching/Bending Home Medications: Medications to take at Discharge Furosemide 60 mg PO BID 02/04/16 Isosorbide Mononitrate [Isosorbide Mononitrate ER] 60 mg PO DAILY 02/04/16 Lisinopril 5 mg PO DAILY 02/04/16 Metformin HCl 500 mg PO DAILY 02/04/16 Simvastatin 40 mg PO QHS 02/04/16 Amlodipine [Norvasc] 5 mg PO DAILY 02/26/17 Calcium Carbonate/Vitamin D3 [Calcium 500-Vit D3 600 Caplet] 1 each PO LUNCH 07/14 Duloxetine HCl 60 mg PO BID 02/26/17 Insulin Aspart Protam & Aspart [Novolog Mix 70-30 Vial] 40 unit SQ BIDCM Levothyroxine [Synthroid] 125 mcg PO DAILY 02/26/17 Metoprolol Tartrate [Lopressor (beta misty)] 50 mg PO BID 02/26/17 Nitroglycerin [Nitrostat] 0.4 mg SUBLINGUAL Q5M PRN 02/26/17 Omeprazole [Prilosec] 20 mg PO BID 02/26/17 Potassium Chloride [Klor-Con 10] 10 meq PO DAILY 02/26/17 Primary Care Physician: Steven Ochoa DO [Primary Care Provider] - Please Follow Up With: Maksim Cevallos MD When: August 30 at 4pm Additional Instructions: resume coumadin with no more blood in the urine. Medical Necessity - Tobacco Use Smoking Status: Never smoker Tobacco Use: Non-smoker Meaningful Use Info Meaningful Use Diagnoses (Choose all that apply): None applicable
== END 2017-08-15 11:16 | disposition skilled nursing facility (03) | DRG 669 ==
LOC: SDC 13:44 → PCU 13:46
PROVIDERS: Anesthesiology; Hospitalist; Physician Assistant; Admitting Provider Urology; Family Provider Preventive Medicine Occupational Medicine; PCP Preventive Medicine Occupational Medicine; Visit Provider Internal Medicine
PROC: 0TBB8ZZ Excision of Bladder, Via Natural or Artificial Opening Endoscopic (ICD-10-PCS; principal; 2017-08-10 12:55)
DX: C67.5 Malignant neoplasm of bladder neck (principal); N99.820 Postprocedural hemorrhage of a genitourinary system organ or structure following a genitourinary system procedure; N17.9 Acute kidney failure, unspecified; E11.65 Type 2 diabetes mellitus with hyperglycemia; E66.01 Morbid (severe) obesity due to excess calories; D62 Acute posthemorrhagic anemia; I50.32 Chronic diastolic (congestive) heart failure; E11.40 Type 2 diabetes mellitus with diabetic neuropathy, unspecified; I11.0 Hypertensive heart disease with heart failure; Z68.41 Body mass index [BMI] 40.0-44.9, adult; I27.20 Pulmonary hypertension, unspecified; R00.1 Bradycardia, unspecified; I49.3 Ventricular premature depolarization; I25.10 Atherosclerotic heart disease of native coronary artery without angina pectoris; Z95.1 Presence of aortocoronary bypass graft; E03.9 Hypothyroidism, unspecified; Z79.899 Other long term (current) drug therapy; Z79.4 Long term (current) use of insulin; G47.33 Obstructive sleep apnea (adult) (pediatric); Z79.01 Long term (current) use of anticoagulants; F03.90 Unspecified dementia, unspecified severity, without behavioral disturbance, psychotic disturbance, mood disturbance, and anxiety; R09.02 Hypoxemia; E78.5 Hyperlipidemia, unspecified; K21.9 Gastro-esophageal reflux disease without esophagitis; K58.9 Irritable bowel syndrome, unspecified
CPT/HCPCS: 36415; 36416; 76770; 80048; 82962; 83036; 83735; 84443; 84484; 85025; 85027; 85610; 86850; 86900; 86920; 86922; 88307; 93005; 93306; 94640; 97110; 97116; 97162; 97165; 97530; 97802; J7030; J7120; P9016; Q9957; A4216; J1940; J2405; J3490; J9280

== ENCOUNTER → 2017-12-13 06:10 | Outpatient (CLI) | payer MEDICARE, OTHER, SELFPAY ==
--- NOTE | 2017-12-13 | BLA_PTH ---
PATIENT: CRISTOPHER LOZANO LOC: [facility] U#:[id number] AGE/SX: 89/F ROOM: RE12/13/[address]: Dr. Maksim Cevallos MD : [id number] BED: DIS: SPEC #: [id number] RECD: 12/14/17 14:24 STATUS: FRANCHESCA KIMBERLYN #: [id number] PEYTON: 12/13/17 00:[address]: Maksim Cevallos DEPT: SURGICAL PATHOLOGY RECD BY: Gregory Burciaga ENTERED: 12/14/17 14:25 SP TYPE: BLADDER BX OTHR DR: Dr. Steven Ochoa DO Tissues: Urinary bladder, NOS Procedures: Surgery Specimen Level IV HEADER OPERATION: Not noted PRE-OP DIAGNOSIS: Hematuria TISSUE SUBMITTED: Bladder biopsy MICROSCOPIC DIAGNOSIS Bladder, biopsy: Fragment of glandular mucosa with mild epithelial atypia, negative for malignancy. SJ:esmer 12/17/17 COMMENT Urothelial mucosa is not identified in the submitted specimen. Please make reference to previous specimen ([id number]) bladder tumor, TUR with diagnosis of papillary urothelial carcinoma and ([id number]) urinary bladder, TUR with diagnosis of papillary urothelial carcinoma. Clinical correlation and appropriate follow up are necessary. MICROSCOPIC DESCRIPTION Slides are reviewed. GROSS DESCRIPTION Received is one container labeled with the patient's name and not further designated. The specimen consists of a fragment of aldana soft tissue measuring 0.1 cm in greatest dimension. The specimen is totally submitted in one cassette. / SJ:esmer 12/14/17 TC:5 CPT: 71723
== END ==
PROVIDERS: Family Provider Preventive Medicine Occupational Medicine; PCP Preventive Medicine Occupational Medicine; Visit Provider Urology
DX: R31.9 Hematuria, unspecified (principal)
CPT/HCPCS: 88305

== ENCOUNTER 2018-07-24 19:50 | Inpatient (IN) | payer MEDICARE, OTHER, SELFPAY ==
[2018-07-24 19:57] VITALS: BMI 36.2
--- NOTE | 2018-07-24 20:37 | ECHOCS_ITS ---
Reason For Study: Elevated troponin Procedure This was a 2D Doppler, Color Flow transthoracic echocardiogram. Exam performed portable in patient room. Left Ventricle Mild concentric left ventricular hypertrophy. The estimated ejection fraction is 65 %. Unable to assess diastolic dysfunction due to arrhythmia. No regional wall motion abnormalities noted. Right Ventricle Normal size and thickness. Normal systolic function. Atria The left atrium is severely enlarged. The right atrium is severely enlarged. Normal atrial septum. Mitral Valve Mild diffuse mitral valve thickening. Severe mitral annular calcification extending into the posterior leaflet. Trivial mitral valve insufficiency. Tricuspid Valve Normal tricuspid valve. Mild (1+) tricuspid valve insufficiency. Right ventricular systolic pressure estimated to be 49 mmHg. Moderate pulmonary hypertension. Aortic Valve Trisinus/trileaflet aortic valve. Pulmonic Valve Normal pulmonic valve. Great Vessels Normal aortic root. Mild atherosclerosis of the aortic arch. Normal inferior vena cava. Inferior vena cava collapse with sniff. Pericardium/Pleural No pericardial effusion. Medication Diluted definity 2ml given slow IV push to enhance endocardial definition. MMode/2D Measurements & Calculations LVIDd: 4.0 cm IVSd: 1.3 cm Ao root diam: 3.2 cm LVIDs: 3.1 cm LVPWd: 1.2 cm RVDd: 3.5 cm FS: 22.3 % LAV(MOD-bp): 76.0 ml LA A4 area: 24.9 cm2 LA dimension(2D): 4.2 cm LAV(MOD-bp) Indexed: 40.6 ml/m2 LAV(MOD-sp2): 76.5 ml LAV(MOD-sp4): 74.7 ml RA A4 area: 28.3 cm2 Doppler Measurements & Calculations MV E max chuy: 165.7 cm/sec MV V2 max: 166.6 cm/sec MV P1/2t max chuy: 164.7 cm/sec MV max P.1 mmHg MV P1/2t: 55.7 msec MV V2 mean: 90.6 cm/sec MV dec slope: 866.7 cm/sec2 MV mean P.8 mmHg MV V2 VTI: 34.8 cm MVA(P1/2t): 4.0 cm2 Ao V2 max: 150.1 cm/sec LV V1 max: 103.0 cm/sec PA V2 max: 105.2 cm/sec Ao max P.1 mmHg LV V1 max P.3 mmHg TR max chuy: 267.2 cm/sec TR max P.0 mmHg Interpretation Summary The estimated ejection fraction is 65 %. Unable to assess diastolic dysfunction due to arrhythmia. The left atrium is severely enlarged. The right atrium is severely enlarged. Mild (1+) tricuspid valve insufficiency. Right ventricular systolic pressure estimated to be 49 mmHg. Moderate pulmonary hypertension. Pt appears to be in atrial fibrillation on today's exam. Compared to echo report dated 08/11/2017, no appreciable changes noted. Ordering Physician: Joesph Estevez Referring Physician: Chey Melgar Performed By: Ellie Alvarado RDCS
--- NOTE | 2018-07-24 20:42 | PCM.HP.STD ---
Problem List (1) Intractable nausea and vomiting Status: Acute Qualifiers: Vomiting type: unspecified Qualified Code(s): R11.2 - Nausea with vomiting, unspecified (2) Elevated troponin Status: Acute (3) Constipation Status: Acute Qualifiers: Constipation type: unspecified constipation type Qualified Code(s): K59.00 - Constipation, unspecified History of Present Illness Date of Admission: 07/24/18 Chief Complaint: Vomiting. The patient is a 82 year old F who began having profuse vomiting today. Patient does have stage III esophageal cancer with an esophageal stent, has been chronically nauseated and with decreased oral intake overall. Today she was having intractable vomiting on several occasions and just was very weak. Patient is also fallen 3 times since the month started. Patient was brought to an outside hospital where she was evaluated had a CAT scan that showed constipation as well as an intact esophageal stent. Lab work was concerning for a white count of 12.2 and a troponin of 0.157. Patient is denying any current chest pain. Patient does have chronic dyspnea on exertion but that is been unchanged. Patient was transferred over here for further evaluation of her cardiac enzymes as well as treatment of her vomiting. Patient has been undergoing radiation treatment for her esophageal cancer. Patient has never undergone any chemo therapy for that. 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 Esophageal cancer C15.9 Stage III. Esophageal stent. Allergies No Known Allergies Allergy (Verified 08/03/17 11:02) Home Medications: Ambulatory Orders Medication Instructions Recorded Furosemide 60 mg PO BID 02/04/16 Isosorbide Mononitrate [Isosorbide 60 mg PO DAILY 02/04/16 Mononitrate ER] Lisinopril 5 mg PO DAILY 02/04/16 Metformin HCl 500 mg PO DAILY 02/04/16 Simvastatin 40 mg PO QHS 02/04/16 Amlodipine [Norvasc] 5 mg PO DAILY 02/26/17 Calcium Carbonate/Vitamin D3 1 each PO LUNCH 02/26/17 [Calcium 500-Vit D3 600 Caplet] Duloxetine HCl 60 mg PO BID 02/26/17 Insulin Aspart Protam & Aspart 40 unit SQ BIDCM 02/26/17 [Novolog Mix 70-30 Vial] Levothyroxine [Synthroid] 125 mcg PO DAILY 02/26/17 Metoprolol Tartrate [Lopressor 50 mg PO BID 02/26/17 (beta misty)] Nitroglycerin [Nitrostat] 0.4 mg SUBLINGUAL Q5M PRN 02/26/17 Omeprazole [Prilosec] 20 mg PO BID 02/26/17 Potassium Chloride [Klor-Con 10] 10 meq PO DAILY 02/26/17 Surgical History: angioplasty, cataract, coronary bypass surgery, - - Pilonidal cyst removed Psychiatric History: Anxiety, Depression 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 Denies: Chills, Fever Eyes: Denies: Blurred vision, Double vision HEENT: Reports: Sinus Congestion - chronic. Denies: Head Aches, Sinus Drainage Cardiovascular: Reports: Edema - chronic. Denies: Chest Pain, Palpitations Respiratory: Reports: Shortness of Breath, Shortness of breath upon exertion - chronic Gastrointestinal: Reports: Constipation, Melena - weeks ago, but since resolved. Genitourinary: Denies: Dysuria, Incontinence Musculoskeletal: Denies: Joint Pain, Joint Tenderness Skin: Reports: Lesions. Denies: Skin Changes Neurological: Reports: Balance problems, - - dementia. Denies: Blurred vision, Double vision Psychiatric: Denies: Anxiety, Depression Endocrine: Denies: Change in Body Habitus, Heat/ Cold Intolerance Hematologic/ Lymphatic: Denies: Easy Bruising, Easy Bleeding, Hx of blood clot Comment: A 10 point review of systems were negative except as mentioned in the history of present illness and the other review of systems. VTE Information - Inpt Only VTE Present on Admission: No VTE Mechan Device Prophylaxis: None VTE Pharm Prophylaxis ordered?: Yes Patient Problems: Active and Suspected Problems Intractable nausea and vomiting (Acute) Elevated troponin (Acute) Constipation (Acute) - Physical Exam General: Alert, Cooperative, No apparent distress, - - listless. afebrile. difficulty remembering details. HEENT: Atraumatic, Normocephalic, - - no scleral icterus. Oral: Moist Mucosa, No Gingival or Mucosal Lesions/ Ulcerations Neck: No Nodes, Thyroid Normal Size and Texture Lungs: Clear to auscultation, No rhonchi, No wheeze, Diminished Cardiovascular: Regular rate, Regular Rhythm, Normal S1, Normal S2, No murmurs Abdomen: Bowel Sounds Present, Soft, Non Tender, Non-Distended, No Hepato-splenomegaly Extremities: No Calf Tenderness, Edema Skin: No rashes, No breakdown Musculoskeletal: No Tenderness to Palpation of Joints or Extremities, No Muscle Wasting Neurological: Muscle tone normal, Coordination normal Psych/Mental Status: Appropriate, Flat Affect Finger Stick Blood Glucose 225 Labs: White count 12.2, hemoglobin 11.5, platelets 382. Urinalysis: Specific gravity 1.02, 15-25 white blood cells. BMP: Glucose 377, sodium 132, potassium 3.5, creatinine 1.26. Troponin 0.157 EKG reviewed and showed atrial fibrillation with RVR. CT abdomen pelvis showed a moderate to large quantity of stool throughout the colon. Circumferential thickening of the bladder wall. Stable fat-containing left adrenal nodule. Distal esophageal wall thickening with interval placement of esophageal stent. Assessment/Plan All Active Problems EKG abnormalities (Acute) Intractable nausea and vomiting (Acute) Elevated troponin (Acute) Constipation (Acute) Venous ulcer of right leg (Acute) 1. Intractable nausea and vomiting: Currently improved at this time. Supportive management for now. May be comp gated by the patient's constipation but also her no esophageal cancer which has had a stent and due to dysphagia. 2. Elevated troponins: Suspect type II/demand ischemia. Due to the patient's nausea and vomiting, afib with RVR artery disease. We will continue to cycle troponins and check an echocardiogram. Discussed with the patient and her son that given her status of her esophageal cancer that she likely not be amenable to any coronary intervention, however, would continue to follow up on test to see if cardiology involvement would be necessary. Patient is on warfarin she is anticoagulated and continue with her aspirin and as well as statin. 3. Atrial fibrillation with RVR: Likely transient as currently rate controlled. Continue with metoprolol as well as warfarin for now. 4. Diabetes mellitus type 2: Patient has labile blood sugars where she drops low into the 40s but was measuring in the 300s at the outside hospital. Given the hypoglycemia the patient has experienced in the previous few days, will hold off on her metformin but continue with her NovoLog mix as well as sliding scale. 5. Esophageal cancer, stage III: Patient has an esophageal stent and has been undergoing radiation events through Dr. Boston. Will request records from Dr. Bird's office. 6. DVT prophylaxis: Plan on for chemical prophylaxis for now but will check her INR to see if the addition of Lovenox would be necessary. 7. Debility: Likely multifactorial due to the patient's underlying esophageal cancer plus also a 70 pound weight loss since this past summer plus current issues such as possible dehydration. Will have physical and occupational therapy evaluate her. 8. Dysphagia: Chronic process but improved after she had the esophageal stent. Were asked for speech therapy to evaluate and see if modified barium swallow would be necessary. 9. Advanced care planning: Spent an additional 16 minutes outside of the history and physical testing with the patient and her son. Addressed her current CODE STATUS from outside has been DNR Comfort Care. Stated that for doing active medical treatment that I would actually recommend rescinding that and going forward with DNR Comfort Care arrest and I verified with no intubation and no to which today's stated that she would not want. Therefore the patient's current CODE STATUS DNR Comfort Care arrest with no intubation nor PEG tube. Code Visit Inpatient E&M: 66457 Init Hosp L3 Procedures: 95788 Advncd Care Plan 30 Min
[2018-07-24 20:59] VITALS: BP 125/47; PULSE 88; RESP 18; TEMP 36.5; O2SAT 100
[2018-07-24 21:43] VITALS: PULSE 119
[2018-07-24 22:08] LABS: International Normalized Ratio 2.5; Prothrombin Time (Protime)PT. 26.7 SECONDS (11.7-14.9)
[2018-07-24] MEDS: 0.9% Normal Saline 1,000 ML 100 ML IV (22:25)
[2018-07-24] MEDS: Sucralfate 1 GM Tablet PO (22:25)
[2018-07-24] MEDS: DULoxetine Hcl 60 MG Capsule PO (22:25)
[2018-07-24] MEDS: Bisacodyl 5 MG Tablet 10 MG PO (22:25)
[2018-07-24 22:26] VITALS: BP 125/47; PULSE 88
[2018-07-24] MEDS: Metoprolol Tartrate 50 MG Tablet PO (22:26)
[2018-07-24] MEDS: 0.9% NaCl Peripheral Flush Adult/Peds IV (22:26)
[2018-07-24] MEDS: Atorvastatin Calcium 20 MG Tablet PO (22:26)
[2018-07-24 23:22] VITALS: PULSE 87
[2018-07-25] VITALS (12 sets, daily range): BP systolic 92–121; BP diastolic 49–62; PULSE 72–120; RESP 14–18; TEMP 36.6–37.1; O2SAT 94–97
[2018-07-25 04:00] LABS: Absolute Lymphocyte Count 0.77 X10^3/ul (0.83-4.51); Absolute Neutrophil Count 6.4 X10^3/uL (2.0-7.7); Basophil# 0.05 X10^3/uL; Basophil% 0.6 % (0-1); Eosinophil# 0.37 X10^3/uL; Eosinophils% 4.4 % (0-5); Hematocrit 32.1 % (37-47); Lymphocyte # 0.77 X10^3/ul (4.0); Lymphocyte % 9.1 % (19-41); Mean Corp Hgb Conc 31.2 g/gl (32-36); Mean Corpuscular Hgb 27.5 pg (27.0-32.0); Mean Corpuscular Volume 88.2 fL (81-99); Monocyte# 0.82 X10^3/uL; Monocyte% 9.7 % (0-10); Neutrophil # 6.41 X10^3/uL (2.7-7.7); POSITIVE COUNT NO; POSITIVE DIFFERENTIAL NO; POSITIVE MORPHOLOGY NO; Platelet Count 346 K/mm3 (150-450); RBC Distribution Width CV 18.3 % (11.6-14.6); RBC Distribution Width SD 57.5 fl (35.1-43.9); Red Blood Count 3.64 M/mm3 (4.2-5.4); White Blood Count 8.4 K/mm3 (4.4-11.0)
[2018-07-25 04:04] LABS: International Normalized Ratio 2.5; Prothrombin Time (Protime)PT. 26.8 SECONDS (11.7-14.9)
[2018-07-25 04:32] LABS: Anion Gap 7 (5-15); BUN 14 mg/dL (7-18); BUN/Creat Ratio 16.1 RATIO (10-20); Calcium,Total 9.8 mg/dL (8.5-10.1); Chloride 101 mmol/L (98-107); Cholesterol 139 mg/dL (200); Creatinine, Serum 0.87 mg/dL (0.55-1.02); EST Glomerular Filtration Rate 66 mL/min (>60); Est Glom Filt Rate - Afr Amer 80 mL/min (>60); Estimated Creatinine Clearance 37.05 ml/min; Glucose 269 mg/dL (74-106); High Density Lipoprotein 54 mg/dL; Potassium 3.4 mmol/L (3.5-5.1); Sodium Level 138 mmol/L (136-145); Triglycerides 126 mg/dL; Very Low Density Lipoprotein 25 mg/dL (5-40)
[2018-07-25] MEDS: Sucralfate 1 GM Tablet PO ×3 (06:09→16:59)
[2018-07-25] MEDS: Levothyroxine 125 MCG Tablet PO (06:09)
[2018-07-25] MEDS: Lisinopril 5 MG Tablet PO (10:18)
[2018-07-25] MEDS: Pantoprazole Sodium 20 MG Tablet PO (10:18)
[2018-07-25] MEDS: Calcium Carb/Vitamin D 1 TABLET Tablet PO (10:18)
[2018-07-25] MEDS: Isosorbide Mononitrate 60 MG Tablet 120 MG PO (10:18)
[2018-07-25] MEDS: DULoxetine Hcl 60 MG Capsule PO ×2 (10:18→23:56)
[2018-07-25] MEDS: Metoprolol Tartrate 50 MG Tablet PO ×2 (10:18→23:56)
[2018-07-25] MEDS: Aspirin 81 MG TAB.CHEW PO (10:19)
[2018-07-25] MEDS: amLODIPine 5 MG Tablet PO (10:19)
[2018-07-25] MEDS: Insulin Human 75/25 Kwickpen 40 UNIT SC ×2 (10:19→17:00)
--- NOTE | 2018-07-25 11:07 | NURSING ---
pt has brought in own glucose meter from home. pt refuses to let RN use hospitals glucose meter. order in system stating okay to use pt's home glucose meter. blood glucose checked with result of 288. insulin given based on this number.
[2018-07-25] MEDS: Insulin Lispro 100 UNIT/ML INSULN.PEN SQ ×2 (11:10→16:59)
--- NOTE | 2018-07-25 11:18 | PCM.PROGNOTE ---
<Adina Bell - Last Filed: 07/25/18 11:47> Patient Problems: Active and Suspected Problems (Last Updated 07/24/18 @ 20:49 by Joesph Estevez DO) Intractable nausea and vomiting (Acute) Elevated troponin (Acute) Constipation (Acute) Subjective: Patient seen and examined. Reports nausea, vomiting improved. Denies emesis overnight. Reports continued poor intake. - Physical Exam General: Alert, Oriented x3, Cooperative, No apparent distress HEENT: Atraumatic, PERRLA, EOMI, Normocephalic Oral: Dry Mucosa Neck: Supple, No JVD, Negative Carotid Bruits Lungs: Clear to auscultation, Diminished Cardiovascular: Regular rate, Regular Rhythm, Normal S1, Normal S2, No murmurs Abdomen: Bowel Sounds Present, Soft, Non Tender, Non-Distended Extremities: No clubbing, No cyanosis Skin: No rashes, No breakdown Musculoskeletal: No Tenderness to Palpation of Joints or Extremities Neurological: Cranial nerves II-XII grossly intact, Neuro grossly intact Psych/Mental Status: Normal Affect, Appropriate Vital Signs Temp Pulse Resp BP Pulse Ox 98.3 F 93 16 121/60 H 95 07/25/18 10:05 07/25/18 11:00 07/25/18 10:05 07/25/18 10:05 07/25/18 10:05 Oxygen Delivery Method Room Air Weight: 185 lb 10.067 oz Body Mass Index (BMI) 36.2 Finger Stick Blood Glucose 225 Intake and Output for Last 24 Hours 07/23/18 07/24/18 07/25/18 23:59 23:59 23:59 Intake Total 712 / 712 Balance 712 / 712 Laboratory Tests Past 24 Hrs 07/24/18 07/24/18 07/24/18 21:45 21:45 21:45 WBC RBC Hgb Hct MCV MCH MCHC RDW RDW Differential Plt Count MPV Immature Gran % (Auto) Neut % (Auto) Lymph % (Auto) Zavala % (Auto) Eos % (Auto) Baso % (Auto) Absolute Neuts (auto) Absolute Lymphs (auto) Total Counted PT 26.7 H INR 2.5 Sodium Potassium Chloride Carbon Dioxide Anion Gap BUN Creatinine Estim Creat Clear Calc Est GFR (MDRD) Af Amer Est GFR (MDRD) Non-Af BUN/Creatinine Ratio Glucose Hemoglobin A1c 8.0 H Calcium Troponin I 0.118 H Triglycerides Cholesterol LDL Cholesterol VLDL Cholesterol HDL Cholesterol 07/25/18 07/25/18 07/25/18 00:57 03:40 03:40 WBC 8.4 RBC 3.64 L Hgb 10.0 L Hct 32.1 L MCV 88.2 MCH 27.5 MCHC 31.2 L RDW 18.3 H RDW Differential 57.5 H Plt Count 346 MPV 10.0 Immature Gran % (Auto) 0.200 Neut % (Auto) 76.0 H Lymph % (Auto) 9.1 L Zavala % (Auto) 9.7 Eos % (Auto) 4.4 Baso % (Auto) 0.6 Absolute Neuts (auto) 6.4 Absolute Lymphs (auto) 0.77 L Total Counted Not Reportable PT 26.8 H INR 2.5 Sodium Potassium Chloride Carbon Dioxide Anion Gap BUN Creatinine Estim Creat Clear Calc Est GFR (MDRD) Af Amer Est GFR (MDRD) Non-Af BUN/Creatinine Ratio Glucose Hemoglobin A1c Calcium Troponin I 0.126 H Triglycerides Cholesterol LDL Cholesterol VLDL Cholesterol HDL Cholesterol 07/25/18 07/25/18 03:40 03:40 WBC RBC Hgb Hct MCV MCH MCHC RDW RDW Differential Plt Count MPV Immature Gran % (Auto) Neut % (Auto) Lymph % (Auto) Zavala % (Auto) Eos % (Auto) Baso % (Auto) Absolute Neuts (auto) Absolute Lymphs (auto) Total Counted PT INR Sodium 138 Potassium 3.4 L Chloride 101 Carbon Dioxide 30.0 Anion Gap 7 BUN 14 Creatinine 0.87 Estim Creat Clear Calc 37.05 Est GFR (MDRD) Af Amer 80 Est GFR (MDRD) Non-Af 66 BUN/Creatinine Ratio 16.1 Glucose 269 H Hemoglobin A1c Calcium 9.8 Troponin I 0.128 H Triglycerides 126 Cholesterol 139 LDL Cholesterol 60 VLDL Cholesterol 25 HDL Cholesterol 54 Medical Necessity - Tobacco Use Smoking Status: Never smoker Tobacco Use: Non-smoker Assessment/Plan All Active Problems (Last Updated 07/24/18 @ 20:49 by Joesph Estevez DO) Venous ulcer of right leg (Acute) EKG abnormalities (Acute) Intractable nausea and vomiting (Acute) Elevated troponin (Acute) Constipation (Acute) 1. Intractable nausea, vomiting-resolved. Patient has continued poor oral intake. Patient reports a history of intermittent nausea, vomiting while undergoing radiation for esophageal cancer. Continue as needed antiemetic regimen. Nutrition consult for poor oral intake. 2. Indeterminate troponin, suspect demand ischemia secondary to to transient atrial fibrillation with RVR-patient denies chest pain. Echocardiogram pending. 3. Esophageal cancer, stage III with associated dysphagia-history of esophageal stent. Currently undergoing radiation and reports she has [address] Boston. Follows with Dr. Bird. Office records and chart reviewed. ST consulted. 4. Debility with falls at home- PT/OT. Possible need for skilled placement. Fall precautions. 5. Severe protein calorie malnutrition-dietitian consult. 6. Paroxysmal atrial fibrillation with RVR-continue Coumadin, metoprolol regimen. 7. Chronic normochromic normocytic anemia-at baseline. 8. CAD status post CABG x5-continue aspirin, statin, Coumadin, isosorbide, metoprolol regimen. 9. Chronic diastolic CHF-no acute exacerbation. Prior echocardiogram in July 2017 with EF 65%, stage II diastolic dysfunction. 10. Type 2 diabetes mellitus-metformin regimen on hold. Accu-Cheks ACHS with sliding scale insulin, continue home 70/30 regimen. Hemoglobin A1c 8%. 11. VENESSA-noncompliant with CPAP. 12. Hypothyroidism-continue Synthroid regimen. 13. Hypertension-stable, continue home amlodipine, isosorbide, lisinopril, metoprolol. Lasix regimen on hold secondary to #1. 14. Hyperlipidemia-continue statin. 15. GERD-continue omeprazole regimen. 16. Depression-continue home duloxetine regimen. 17. History of bladder cancer status post resection July [address] Cevallos. DVT prophylaxis- Coumadin Discharge planning: Pending PT evaluation/recommendations. This patient was seen by OWEN Wisdom under the supervision of Dr. Maldonado. <Man Maldonado - Last Filed: 07/25/18 12:37> - Physical Exam Vital Signs Temp Pulse Resp BP Pulse Ox 98.3 F 93 16 121/60 H 95 07/25/18 10:05 07/25/18 11:00 07/25/18 10:05 07/25/18 10:05 07/25/18 10:05 Oxygen Delivery Method Room Air Weight: 84.2 kg Body Mass Index (BMI) 36.2 Finger Stick Blood Glucose 225 Intake and Output for Last 24 Hours 07/23/18 07/24/18 07/25/18 23:59 23:59 23:59 Intake Total 1262 / 1262 Balance 1262 / 1262 Laboratory Tests Past 24 Hrs 07/24/18 07/24/18 07/24/18 21:45 21:45 21:45 WBC RBC Hgb Hct MCV MCH MCHC RDW RDW Differential Plt Count MPV Immature Gran % (Auto) Neut % (Auto) Lymph % (Auto) Zavala % (Auto) Eos % (Auto) Baso % (Auto) Absolute Neuts (auto) Absolute Lymphs (auto) Total Counted PT 26.7 H INR 2.5 Sodium Potassium Chloride Carbon Dioxide Anion Gap BUN Creatinine Estim Creat Clear Calc Est GFR (MDRD) Af Amer Est GFR (MDRD) Non-Af BUN/Creatinine Ratio Glucose Hemoglobin A1c 8.0 H Calcium Troponin I 0.118 H Triglycerides Cholesterol LDL Cholesterol VLDL Cholesterol HDL Cholesterol 07/25/18 07/25/18 07/25/18 00:57 03:40 03:40 WBC 8.4 RBC 3.64 L Hgb 10.0 L Hct 32.1 L MCV 88.2 MCH 27.5 MCHC 31.2 L RDW 18.3 H RDW Differential 57.5 H Plt Count 346 MPV 10.0 Immature Gran % (Auto) 0.200 Neut % (Auto) 76.0 H Lymph % (Auto) 9.1 L Zavala % (Auto) 9.7 Eos % (Auto) 4.4 Baso % (Auto) 0.6 Absolute Neuts (auto) 6.4 Absolute Lymphs (auto) 0.77 L Total Counted Not Reportable PT 26.8 H INR 2.5 Sodium Potassium Chloride Carbon Dioxide Anion Gap BUN Creatinine Estim Creat Clear Calc Est GFR (MDRD) Af Amer Est GFR (MDRD) Non-Af BUN/Creatinine Ratio Glucose Hemoglobin A1c Calcium Troponin I 0.126 H Triglycerides Cholesterol LDL Cholesterol VLDL Cholesterol HDL Cholesterol 07/25/18 07/25/18 03:40 03:40 WBC RBC Hgb Hct MCV MCH MCHC RDW RDW Differential Plt Count MPV Immature Gran % (Auto) Neut % (Auto) Lymph % (Auto) Zavala % (Auto) Eos % (Auto) Baso % (Auto) Absolute Neuts (auto) Absolute Lymphs (auto) Total Counted PT INR Sodium 138 Potassium 3.4 L Chloride 101 Carbon Dioxide 30.0 Anion Gap 7 BUN 14 Creatinine 0.87 Estim Creat Clear Calc 37.05 Est GFR (MDRD) Af Amer 80 Est GFR (MDRD) Non-Af 66 BUN/Creatinine Ratio 16.1 Glucose 269 H Hemoglobin A1c Calcium 9.8 Troponin I 0.128 H Triglycerides 126 Cholesterol 139 LDL Cholesterol 60 VLDL Cholesterol 25 HDL Cholesterol 54 Assessment/Plan This patient was seen in conjunction with OWEN Wisdom . I have independently interviewed and examined the patient and reviewed pertinent historical, laboratory, and other data. Please refer to OWEN Wisdom note for details of this patient's presentation, findings, and recommendations. I have reviewed OWEN Wisdom note and concur with documented findings. In brief, patient is a 82-year-old lady with multiple comorbidities including esophageal CA status post esophageal stent and radiation who presented with intractable nausea Physical Examination: GENERAL: cooperative HEENT: Atraumatic; EYES; Anicteric, NECK; supple, normal thyroid, RESPIRATORY: Diminished to auscultation bilaterally, CARDIOVASCULAR: Regular S1 S2, GI: soft, non-tender, normoactive bowel sounds, : No Renal angle tenderness; EXTREMITIES: No edema, no clubbing, PSYCH; Normal affect Assessment: 1. Intractable nausea vomiting 2. Esophageal CA stage III status post esophageal stent and radiation 3. Atrial fibrillation with RVR 4. Elevated troponin secondary to demand ischemia from patient A. fib 5. Anemia secondary to anemia of chronic disorder 6. CAD status post CABG 7. Diabetes mellitus type 2 8. Hypothyroidism 9. Essential hypertension 10. Obstructive sleep apnea 11. Obesity with BMI of 36.3 12. Severe protein calorie malnutrition 13. GERD 14. Physical debility 15. Depression 16. History of bladder cancer status post resection July 2017 17. DVT prophylaxis- Coumadin Recommendations: 1. I have discussed the results of my overview and impressions with the patient 2. Options for management were reviewed Code Visit Inpatient E&M: 15039 [facility] Hosp L3
--- NOTE | 2018-07-25 11:56 | CASEMGMT ---
Addendum entered by Jourdan Kelly 07/25/18 12:48: Met with pt's daughter, Diana, in [facility]. Diana states that her brother, Carlyle, is HCPOA and that Carlyle lives with pt. Diana states pt has been becoming progressively weaker and that she has fallen @ home. Diana states the family has been discussing about options of utilizing Adult Day Care for pt a few times a week and have even discussed with pt that she may need to go to an extended care facility if she gets to a point where she is not safe @ home. PT/OT evals are pending. Awaiting PT/OT evals and if any recommendations are made. CM to follow for discharge planning. Original Note: RN CM NOTE: To room for initial RN CM assessment. Pt resting in bed. Pt states her son Carlyle takes care of all of my medical stuff and asks if CM can talk to him about questions and discharge planning. Pt states Carlyle is @ work and states, he should be coming back in later. CM to discuss discharge planning with Carlyle when he is available. Cheyenne CASEYN RN CM
--- NOTE | 2018-07-25 15:15 | EKG12_ITS ---
Test Reason : RYTHUM Blood Pressure : / mmHG Vent. Rate : 095 BPM Atrial Rate : 277 BPM P-R Int : 000 ms QRS Dur : 090 ms QT Int : 342 ms P-R-T Axes : 000 -45 -33 degrees QTc Int : 429 ms Atrial flutter with variable A-V block Left anterior fascicular block ST & T wave abnormality, consider anterior ischemia Abnormal ECG When compared with ECG of 11-AUG-2017 05:53, Significant changes have occurred Confirmed by DEMETRIS CURRY, SHAUN ([id number]), pictures editor LIYA BECKETT ([id number]) on 07/29/2018 2:43:53 PM Referred By: Chey Melgar Confirmed By:SHAUN WILLSON MD
--- NOTE | 2018-07-25 16:04 | CHAPLAIN ---
Type of Pastoral Visit _x__ Initial Visit ___ Follow-up Visit ___ On-call Visit ___ General Patient Visit ___ Spiritual Assessment ___ Family Conference ___ Bereavement ___ Rapid Response ___ Code Blue ___ Other (describe below) Pastoral Care Referral From _x__ Patient ___ Family ___ Nurse ___ Physician ___ Bulk Plant Operator ___ Certified Surgical Tech/First Assistant ___ Other (describe below) Sacrament/Intervention _x__ Active listening ___ Anointing ___ Latter-Day ___ Bereavement ___ Communion ___ Radha exploration ___ _x__ Life review _x__ Prayer ___ Reconciliation ___ Sacrament of Sick _x__ Supportive presence ___ Wedding ___ Other (describe below) Pastoral Comments patient has been seen before by this forest fire prevention manager during previous admissions; pt eager to talk with forest fire prevention manager and welcomes presence, chance to talk, spiritual support and prayer
[2018-07-25] MEDS: Glucerna Shake 120 ML LIQUID PO (17:00)
--- NOTE | 2018-07-25 17:13 | NURSING ---
pt's children told this RN that they would prefer [facility] in [place] for first choice of SNF if pt were to go somewhere for therapy.
[2018-07-25] MEDS: Atorvastatin Calcium 20 MG Tablet PO (23:56)
[2018-07-26] VITALS (7 sets, daily range): BP systolic 107–124; BP diastolic 65–73; PULSE 70–98; RESP 16–18; TEMP 36.6–36.7; O2SAT 94–96
[2018-07-26] MEDS: Pantoprazole Sodium 20 MG Tablet PO ×2 (00:09→09:20)
[2018-07-26 00:16] LABS: Bedside Glucose 63 mg/dL (70-110)
[2018-07-26 00:16] LABS: Bedside Glucose 50 mg/dL (70-110)
[2018-07-26 00:16] LABS: Bedside Glucose 55 mg/dL (70-110)
[2018-07-26 00:25] LABS: Bedside Glucose 74 mg/dL (70-110)
[2018-07-26 04:26] LABS: Bedside Glucose 67 mg/dL (70-110)
[2018-07-26] MEDS: Levothyroxine 125 MCG Tablet PO (06:13)
--- NOTE | 2018-07-26 07:17 | NURSING ---
HS RN checked am blood glucose with result of 57 after HS RN gave several juices. this RN will consult
[2018-07-26 07:28] LABS: Anion Gap 6 (5-15); BUN 12 mg/dL (7-18); Calcium,Total 10.7 mg/dL (8.5-10.1); Chloride 102 mmol/L (98-107); EST Glomerular Filtration Rate 73 mL/min (>60); Est Glom Filt Rate - Afr Amer 89 mL/min (>60); Estimated Creatinine Clearance 40.29 ml/min; Glucose 58 mg/dL (74-106); Potassium 3.8 mmol/L (3.5-5.1); Sodium Level 137 mmol/L (136-145)
--- NOTE | 2018-07-26 08:04 | NURSING ---
blood glucose checked after pt was assisted to bathroom then to chair. blood glucose 65. pt asymptomatic. breakfast ordered. Adina QUINTANA made aware.
[2018-07-26] MEDS: DULoxetine Hcl 60 MG Capsule PO (09:18)
[2018-07-26] MEDS: Sucralfate 1 GM Tablet PO ×2 (09:18→11:18)
[2018-07-26] MEDS: Aspirin 81 MG TAB.CHEW PO (09:18)
[2018-07-26] MEDS: Isosorbide Mononitrate 60 MG Tablet 120 MG PO (09:19)
[2018-07-26] MEDS: Glucerna Shake 120 ML LIQUID PO ×2 (09:19→11:18)
[2018-07-26] MEDS: Metoprolol Tartrate 50 MG Tablet PO (09:20)
[2018-07-26] MEDS: Lisinopril 5 MG Tablet PO (09:20)
[2018-07-26] MEDS: amLODIPine 5 MG Tablet PO (09:20)
--- NOTE | 2018-07-26 10:47 | CASEMGMT ---
ROME called patient's son, Carlyle who is her Healthcare POA. ROME let him know about need for placement and that it would be private pay. ROME told him it sounded like they would like [facility]. ROME told him private pay cost for [facility] is $193/day for semi-private and $218 for private. He said his brother Man is the financial POA. He works 3rd shift and does not get up until 230/3p. He will call him then and talk with him about plan and get back to ROME. SW made referral to [facility] and will talk with them about plan. Tita CARO MSW
[2018-07-26] MEDS: Calcium Carb/Vitamin D 1 TABLET Tablet PO (11:18)
--- NOTE | 2018-07-26 11:19 | NURSING ---
BLOOD GLUCOSE 186
--- NOTE | 2018-07-26 11:57 | PCM.EXTCARCO ---
- Diet 07/25/18 10:25 Diet: Regular Diet Food consistency:: Puree Liquid Consistency:: Regular/Thin Dietary Modifications:: Pureed Diet Is pt able to select menu?: Yes Diet Comments: meds crushed in purees - Routine Orders/Code Status Enema Type: Fleetz Enema Frequency: Daily PRN Suppository Type: Dulcolax 10mg Suppository Frequency: Daily PRN Routine Lab Work: CBC, BMP, - - Q Week [facility] - Suggestions for Active Care Change Position every (hours): 2 Times a day to sit in chair: 3 - Therapies Physical Therapy: Eval and Treat Occupational Therapy: Eval and Treat Speech Therapy: Eval and Treat - Problem/Diagnosis (1) Elevated troponin Status: Acute Current Visit: Yes (2) Intractable nausea and vomiting Status: Acute Current Visit: Yes (3) CAD, 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 5 Current Visit: No (4) 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 Status: Chronic Current Visit: No (5) Diabetes type 2, uncontrolled Status: Chronic Current Visit: No (6) GERD (gastroesophageal reflux disease) Status: Chronic Current Visit: No (7) HTN (hypertension) Status: Chronic Current Visit: No (8) Hyperlipidemia Status: Chronic Current Visit: No (9) Hypothyroidism Status: Chronic Current Visit: No (10) Morbid obesity Status: Chronic Current Visit: No (11) Sleep apnea Status: Chronic Current Visit: No (12) Esophageal cancer Status: Chronic Current Visit: No - Allergies/Procedures Done in Hospital Allergies/Adverse Reactions: Allergies No Known Allergies Allergy (Verified 08/03/17 11:02) Procedures: 2-D Echocardiogram - Type of Care/Length of Stay Estimated LOS: More Than 30 Days Type of Care Needed: Skilled Rehab Potential: Fair Prognosis: Fair - Additional Orders/Day of Discharge H&P will serve as current which was dated: 07/24/18 Day of Discharge: 07/26/18 - Dietary and Speech Recommendations Dietitian Recommendations/Changes: Rec diet change to CHO controlled, no added salt- consistency per [employer]. Will switch Glucerna ONS from TID to 4x/day w/ medpass. Will offer ONS at meals for additional protein/calories if consumed. - Follow Up Care Primary Care Physician: Steven Ochoa DO [Primary Care Provider] - Please follow up with your Primary Care Physician in: 1 Week Please Follow Up With: Haile Bird DO - and Dr. Boston When: As scheduled, oncology and radiation oncology
--- NOTE | 2018-07-26 12:00 | TREXTCA.CO_ITS ---
- Diet 07/25/18 10:25 Diet: Regular Diet Food consistency:: Puree Liquid Consistency:: Regular/Thin Dietary Modifications:: Pureed Diet Is pt able to select menu?: Yes Diet Comments: meds crushed in purees - Routine Orders/Code Status Enema Type: Fleetz Enema Frequency: Daily PRN Suppository Type: Dulcolax 10mg Suppository Frequency: Daily PRN Routine Lab Work: CBC, BMP, - - Q Week [facility] - Suggestions for Active Care Change Position every (hours): 2 Times a day to sit in chair: 3 - Therapies Physical Therapy: Eval and Treat Occupational Therapy: Eval and Treat Speech Therapy: Eval and Treat - Problem/Diagnosis (1) Elevated troponin Status: Acute Current Visit: Yes (2) Intractable nausea and vomiting Status: Acute Current Visit: Yes (3) CAD, 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 5 Current Visit: No (4) 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 Status: Chronic Current Visit: No (5) Diabetes type 2, uncontrolled Status: Chronic Current Visit: No (6) GERD (gastroesophageal reflux disease) Status: Chronic Current Visit: No (7) HTN (hypertension) Status: Chronic Current Visit: No (8) Hyperlipidemia Status: Chronic Current Visit: No (9) Hypothyroidism Status: Chronic Current Visit: No (10) Morbid obesity Status: Chronic Current Visit: No (11) Sleep apnea Status: Chronic Current Visit: No (12) Esophageal cancer Status: Chronic Current Visit: No - Allergies/Procedures Done in Hospital Allergies/Adverse Reactions: Allergies No Known Allergies Allergy (Verified 08/03/17 11:02) Procedures: 2-D Echocardiogram - Type of Care/Length of Stay Estimated LOS: More Than 30 Days Type of Care Needed: Skilled Rehab Potential: Fair Prognosis: Fair - Additional Orders/Day of Discharge H&P will serve as current which was dated: 07/24/18 Day of Discharge: 07/26/18 - Dietary and Speech Recommendations Dietitian Recommendations/Changes: Rec diet change to CHO controlled, no added salt- consistency per [employer]. Will switch Glucerna ONS from TID to 4x/day w/ medpass. Will offer ONS at meals for additional protein/calories if consumed. - Follow Up Care Primary Care Physician: Steven Ochoa DO [Primary Care Provider] - Please follow up with your Primary Care Physician in: 1 Week Please Follow Up With: Haile Bird DO - and Dr. Boston When: As scheduled, oncology and radiation oncology
--- NOTE | 2018-07-26 12:16 | DCINST_ITS ---
- Discharge Diagnoses Current Active Problems: Current Active and Chronic Problems (Last Updated 07/24/18 @ 20:49 by Joesph Estevez DO) Intractable nausea and vomiting (Acute) Elevated troponin (Acute) Constipation (Acute) You will use the following diet at home:: No restrictions Discharge Activity: Return to Normal Activity Call your doctor if you observe: Shortness of breath, Dizziness, Fainting spells, Chest pain Allergies/Adverse Reactions: Allergies No Known Allergies Allergy (Verified 08/03/17 11:02) Medications to take at Discharge Isosorbide Mononitrate [Isosorbide Mononitrate ER] 60 mg PO DAILY 02/04/16 Lisinopril 5 mg PO DAILY 02/04/16 Simvastatin 40 mg PO QHS 02/04/16 Amlodipine [Norvasc] 5 mg PO DAILY 02/26/17 Calcium Carbonate/Vitamin D3 [Calcium 500-Vit D3 600 Caplet] 1 each PO LUNCH 02/26/17 Duloxetine HCl 60 mg PO BID 02/26/17 Levothyroxine [Synthroid] 125 mcg PO DAILY 02/26/17 Metoprolol Tartrate [Lopressor (beta misty)] 50 mg PO BID 02/26/17 Nitroglycerin [Nitrostat] 0.4 mg SUBLINGUAL Q5M PRN 02/26/17 Omeprazole [Prilosec] 20 mg PO DAILY 02/26/17 Potassium Chloride [Klor-Con 10] 20 meq PO BID 02/26/17 Aspirin [Aspirin, Baby] 81 mg PO DAILY 07/24/18 Os-Gregory 500MG + D 1 tab PO BID 07/24/18 Warfarin 5 mg PO DAILY 07/24/18 Warfarin [Coumadin] 2.5 mg PO DAILY 07/24/18 Furosemide 40 mg PO DAILY #0 07/26/18 Insulin Human 75/25 [Humalog Mix 75-25 Kwikpen] 20 unit SC BIDCM insuln.pen 07/26/18 Polyethylene Glycol 3350 [Miralax] 17 gm PO DAILY packet 07/26/18 Sucralfate [Carafate] 1 gm PO 1HR_ACHS tablet 07/26/18 Primary Care Physician: Steven Ochoa DO [Primary Care Provider] - Please follow up with your Primary Care Physician in: 1 Week Test Results: Test results from this visit will be discussed in further detail at your follow- up appointment, if applicable. Please Follow Up With: Haile Bird DO - and Dr. Boston When: As scheduled, oncology and radiation oncology Please Follow Up With: Man Betancourt DO - Palliative Care When: Call for appt Proposed Discharge Date: 07/26/18
--- NOTE | 2018-07-26 12:25 | CASEMGMT ---
Addendum entered by Tita Jaeger 07/26/18 12:42: SW called patient's son about Palliative Care. He was in agreement with talking with Palliative. ROME faxed referral to Palliative Care and also called Leydi regarding referral. Tita WONG Original Note: SW received a return call from patient's son Carlyle. He said he spoke with his sister and she will be in to picker and packer patient. They are taking her home. He said his sister said someone told her yesterday that they would keep patient in the hospital until Sat or Sun so patient can get her qualifying stay. ROME told him medically it is not necessary for her to be in the hospital so we cannot keep her just to get her qualifying stay. He asked if home health could be set up and they would like [facility]. ROME called Ayse with [facility] and left her a message with referral. ROME also notified RN. ROME will let Ulises know once patient has left [facility] in case things change. Plan: At this time the plan is for patient to be discharged home with family with home health [facility], PT, and OT. This will be with [facility] pending their acceptance of patient. RN CM also left a message for Yinka in [facility] letting her know plan. She also asked that both HH and [facility] stay involved at the same time. Tita WONG
--- NOTE | 2018-07-26 12:55 | DS.PCM_ITS ---
<Adian Bell - Last Filed: 07/26/18 12:55> Discharge Date and Diagnosis Date of Admission: 07/24/18 Date of Discharge: 07/26/18 - Primary Discharge Diagnosis Active and Suspected Problems (Last Updated 07/24/18 @ 20:49 by Joesph Estevez DO) 1. Intractable nausea, vomiting 2. Indeterminate troponin, suspect demand ischemia secondary to to transient atrial fibrillation with RVR 3. Esophageal cancer, stage III with associated dysphagia 4. Debility with falls at home- 5. Severe protein calorie malnutrition 6. Paroxysmal atrial fibrillation with RVR 7. Chronic normochromic normocytic anemia 8. CAD status post CABG x5 9. Chronic diastolic CHF 10. Type 2 diabetes mellitus 11. VENESSA 12. Hypothyroidism 13. Hypertension 14. Hyperlipidemia 15. GERD 16. Depression 17. History of bladder cancer status post resection July [address] Cevallos. - Secondary Discharge Diagnosis Chronic Problems (Last Updated 07/24/18 @ 20:49 by Joesph Estevez DO) 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 (Chronic) CAD, multiple vessel (Chronic) S/P CABG x 5 Pulmonary HTN (Chronic) Sleep apnea (Chronic) Diabetes type 2, uncontrolled (Chronic) Morbid obesity (Chronic) Hypothyroidism (Chronic) Diabetic neuropathy (Chronic) HTN (hypertension) (Chronic) Hyperlipidemia (Chronic) IBS (irritable bowel syndrome) (Chronic) GERD (gastroesophageal reflux disease) (Chronic) Ulcer of lower extremity due to diabetes (Chronic) Bladder cancer (Chronic) Esophageal cancer (Chronic) Hospital Course and Treatment Procedures: 2-D Echocardiogram Summary of Care Provided: The patient is a 82 year old F admitted 07/24/2018 due to vomiting. 1. Intractable nausea, vomiting-resolved. Patient reports a history of intermittent nausea, vomiting while undergoing radiation for esophageal cancer. Tolerating oral intake without nausea, emesis at discharge. Patient was started on Carafate 1 mg p.o. ACHS at discharge. 2. Indeterminate troponin, suspect demand ischemia secondary to to transient atrial fibrillation with RVR-patient denies chest pain. Echocardiogram completed and showed an EF of 65%, severely enlarged right and left atrium, mild tricuspid valve insufficiency, RVSP estimated to be 49 mmHg. No changes noted compared to prior study. 3. Esophageal cancer, stage III with associated dysphagia-history of esophageal stent. Currently undergoing radiation and reports she has 2 more [address] treatments with Dr. Boston. Follows with Dr. Bird. Office records and chart reviewed. ST consulted. Palliative referral made at discharge. 4. Debility with falls at home-PT recommended SNF at discharge. However, patient's family declined due to patient having to private pay for SNF. Patient will go home with home health at discharge. 5. Severe protein calorie malnutrition-recommend continued Ensure supplementation 3-4 times daily. 6. Paroxysmal atrial fibrillation with RVR-continue Coumadin, metoprolol radhames men. 7. Chronic normochromic normocytic anemia-at baseline. 8. CAD status post CABG x5-continue aspirin, statin, Coumadin, isosorbide, metoprolol regimen. 9. Chronic diastolic CHF-no acute exacerbation. Prior echocardiogram in July 2017 with EF 65%, stage II diastolic dysfunction. 10. Type 2 diabetes mellitus-patient noted to have low blood glucose during admission. Home metformin regimen discontinued going forward given hypoglycemia and ongoing poor oral intake. Her home 70/30 regimen also decreased to 20 units twice daily from prior 45 units twice daily. 11. VENESSA-noncompliant with CPAP. 12. Hypothyroidism-continue Synthroid regimen. 13. Hypertension-stable, continue home amlodipine, isosorbide, lisinopril, metoprolol. Home Lasix regimen decreased to 40 mg once daily from prior regimen of 40 mg twice daily due to poor oral intake and concern for dehydration. 14. Hyperlipidemia-continue statin. 15. GERD-continue omeprazole regimen. 16. Depression-continue home duloxetine regimen. 17. History of bladder cancer status post resection July [address] Cevallos. General: Alert, Oriented x3, Cooperative, No apparent distress HEENT: Atraumatic, PERRLA, EOMI, Normocephalic Oral: Dry Mucosa Neck: Supple, No JVD, Negative Carotid Bruits Lungs: Clear to auscultation, Diminished Cardiovascular: Regular rate, Regular Rhythm, Normal S1, Normal S2, No murmurs Abdomen: Bowel Sounds Present, Soft, Non Tender, Non-Distended Extremities: No clubbing, No cyanosis Skin: No rashes, No breakdown Musculoskeletal: No Tenderness to Palpation of Joints or Extremities Neurological: Cranial nerves II-XII grossly intact, Neuro grossly intact Psych/Mental Status: Normal Affect, Appropriate Patient seen and examined prior to discharge. Physical assessment as noted above. Patient is stable for discharge with follow up recommendations as noted above. This patient was seen by OWEN Wisdom under the supervision of Dr. Maldonado. - Physical Exam Vital Signs Temp Pulse Resp BP Pulse Ox 98.0 F 73 16 118/66 96 07/26/18 09:18 07/26/18 11:00 07/26/18 09:18 07/26/18 09:18 07/26/18 09:18 Oxygen Delivery Method Room Air Weight: 185 lb 10.067 oz Body Mass Index (BMI) 36.2 Finger Stick Blood Glucose 225 Intake and Output for Last 24 Hours 07/24/18 07/25/18 07/26/18 23:59 23:59 23:59 Intake Total 1722 / 1722 1050 / 1050 Balance 1722 / 1722 1050 / 1050 Laboratory Tests Past 24 Hrs 07/26/18 06:00 Sodium 137 Potassium 3.8 Chloride 102 Carbon Dioxide 29.0 Anion Gap 6 BUN 12 Creatinine 0.80 Estim Creat Clear Calc 40.29 Est GFR (MDRD) Af Amer 89 Est GFR (MDRD) Non-Af 73 BUN/Creatinine Ratio 15.0 Glucose 58 L Calcium 10.7 H POC Glucose 07/26/18 07/26/18 07/25/18 04:09 00:18 23:53 POC Glucose 67 L 74 55 L 07/25/18 07/25/18 23:10 22:02 POC Glucose 63 L 50 L Discharge Diet: No Restrictions Discharge Activity: Return to Normal Activity Call your doctor if you observe: Shortness of breath, Dizziness, Fainting spells, Chest pain Home Medications: Medications to take at Discharge Isosorbide Mononitrate [Isosorbide Mononitrate ER] 60 mg PO DAILY 02/04/16 Lisinopril 5 mg PO DAILY 02/04/16 Simvastatin 40 mg PO QHS 02/04/16 Amlodipine [Norvasc] 5 mg PO DAILY 02/26/17 Calcium Carbonate/Vitamin D3 [Calcium 500-Vit D3 600 Caplet] 1 each PO LUNCH 02/26/17 Duloxetine HCl 60 mg PO BID 02/26/17 Levothyroxine [Synthroid] 125 mcg PO DAILY 02/26/17 Metoprolol Tartrate [Lopressor (beta misty)] 50 mg PO BID 02/26/17 Nitroglycerin [Nitrostat] 0.4 mg SUBLINGUAL Q5M PRN 02/26/17 Omeprazole [Prilosec] 20 mg PO DAILY 02/26/17 Potassium Chloride [Klor-Con 10] 20 meq PO BID 02/26/17 Aspirin [Aspirin, Baby] 81 mg PO DAILY 07/24/18 Os-Gregory 500MG + D 1 tab PO BID 07/24/18 Warfarin 5 mg PO DAILY 07/24/18 Warfarin [Coumadin] 2.5 mg PO DAILY 07/24/18 Furosemide 40 mg PO DAILY #0 07/26/18 Insulin Human 75/25 [Humalog Mix 75-25 Kwikpen] 20 unit SC BIDCM insuln.pen 07/26/18 Polyethylene Glycol 3350 [Miralax] 17 gm PO DAILY #30 packet 07/26/18 Sucralfate [Carafate] 1 gm PO 4X/DAY #120 tablet 07/26/18 Following Prescrptions Were Given to Patient: Polyethylene Glycol 3350 [Miralax] 17 gm PO DAILY #30 packet Sucralfate [Carafate] 1 gm PO 4X/DAY #120 tablet Primary Care Physician: Steven Ochoa DO [Primary Care Provider] - Please follow up with your Primary Care Physician in: 1 Week Please Follow Up With: Haile Bird DO - and Dr. Boston When: As scheduled, oncology and radiation oncology Please Follow Up With: Man Betancourt DO - Palliative Care When: Call for appt Disposition: Home with Home Health Minutes spent on discharge:: 35 Patient Condition:: Stable Medical Necessity - Tobacco Use Smoking Status: Never smoker Tobacco Use: Non-smoker Meaningful Use Info Meaningful Use Diagnoses (Choose all that apply): None applicable <Man Maldonado - Last Filed: 07/26/18 14:15> Discharge Date and Diagnosis - Secondary Discharge Diagnosis Chronic Problems (Last Updated 07/24/18 @ 20:49 by Joesph Estevez DO) 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 (Chronic) CAD, multiple vessel (Chronic) S/P CABG x 5 Pulmonary HTN (Chronic) Sleep apnea (Chronic) Diabetes type 2, uncontrolled (Chronic) Morbid obesity (Chronic) Hypothyroidism (Chronic) Diabetic neuropathy (Chronic) HTN (hypertension) (Chronic) Hyperlipidemia (Chronic) IBS (irritable bowel syndrome) (Chronic) GERD (gastroesophageal reflux disease) (Chronic) Ulcer of lower extremity due to diabetes (Chronic) Bladder cancer (Chronic) Esophageal cancer (Chronic) Hospital Course and Treatment Summary of Care Provided: This patient was seen in conjunction with OWEN Wisdom . I have independently interviewed and examined the patient and reviewed pertinent historical, laboratory, and other data. Please refer to OWEN Wisdom note for details of this patient's presentation, findings, and recommendations. I have reviewed OWEN Wisdom note and concur with documented findings. In brief, patient is a 82-year-old lady with multiple comorbidities including esophageal CA status post esophageal stent and radiation who presented with intractable nausea Assessment: 1. Intractable nausea vomiting 2. Esophageal CA stage III status post esophageal stent and radiation 3. Atrial fibrillation with RVR 4. Elevated troponin secondary to demand ischemia from patient A. fib 5. Anemia secondary to anemia of chronic disorder 6. CAD status post CABG 7. Diabetes mellitus type 2 8. Hypothyroidism 9. Essential hypertension 10. Obstructive sleep apnea 11. Obesity with BMI of 36.3 12. Severe protein calorie malnutrition 13. GERD 14. Physical debility 15. Depression 16. History of bladder cancer status post resection July 2017 17. DVT prophylaxis- Coumadin Hospital course: As documented above - Physical Exam Vital Signs Temp Pulse Resp BP Pulse Ox 97.9 F 98 18 124/73 H 94 07/26/18 13:22 07/26/18 13:22 07/26/18 13:22 07/26/18 13:22 07/26/18 13:22 Oxygen Delivery Method Room Air Weight: 84.2 kg Body Mass Index (BMI) 36.2 Finger Stick Blood Glucose 225 Intake and Output for Last 24 Hours 07/24/18 07/25/18 07/26/18 23:59 23:59 23:59 Intake Total 1722 / 1722 1050 / 1050 Balance 1722 / 1722 1050 / 1050 Laboratory Tests Past 24 Hrs 07/26/18 06:00 Sodium 137 Potassium 3.8 Chloride 102 Carbon Dioxide 29.0 Anion Gap 6 BUN 12 Creatinine 0.80 Estim Creat Clear Calc 40.29 Est GFR (MDRD) Af Amer 89 Est GFR (MDRD) Non-Af 73 BUN/Creatinine Ratio 15.0 Glucose 58 L Calcium 10.7 H POC Glucose 07/26/18 07/26/18 07/25/18 04:09 00:18 23:53 POC Glucose 67 L 74 55 L 07/25/18 07/25/18 23:10 22:02 POC Glucose 63 L 50 L Code Visit Inpatient E&M: 50600 Disch Hosp
--- NOTE | 2018-07-26 14:18 | CASEMGMT ---
Ayse from [facility] states that they will be able to take pt for RN, PT/OT and that they will do start of care tomorrow. Message left with Yinka at [facility] to advise that [facility] has been set up but that pt would benefit from both at the same time. Message also left with Jorge L, pt's [facility], nurse at this time regarding same. SStaten RN CM
== END 2018-07-26 14:39 | disposition home health service (06) | DRG 391 ==
PROVIDERS: Nurse Practitioner Family; Family Provider Preventive Medicine Occupational Medicine; PCP Preventive Medicine Occupational Medicine; Referring Provider Family Medicine; Visit Provider Internal Medicine
DX: R11.2 Nausea with vomiting, unspecified (principal); E43 Unspecified severe protein-calorie malnutrition; C15.9 Malignant neoplasm of esophagus, unspecified; I50.32 Chronic diastolic (congestive) heart failure; I24.8 Other forms of acute ischemic heart disease; I48.0 Paroxysmal atrial fibrillation; I11.0 Hypertensive heart disease with heart failure; E11.65 Type 2 diabetes mellitus with hyperglycemia; E11.649 Type 2 diabetes mellitus with hypoglycemia without coma; D64.9 Anemia, unspecified; Z66 Do not resuscitate; E11.40 Type 2 diabetes mellitus with diabetic neuropathy, unspecified; F32.9 Major depressive disorder, single episode, unspecified; G47.33 Obstructive sleep apnea (adult) (pediatric); I27.20 Pulmonary hypertension, unspecified; E03.9 Hypothyroidism, unspecified; K21.9 Gastro-esophageal reflux disease without esophagitis; R53.81 Other malaise; E78.5 Hyperlipidemia, unspecified; E66.01 Morbid (severe) obesity due to excess calories; I25.10 Atherosclerotic heart disease of native coronary artery without angina pectoris; K58.9 Irritable bowel syndrome, unspecified; Z79.4 Long term (current) use of insulin; Z68.36 Body mass index [BMI] 36.0-36.9, adult; Z95.1 Presence of aortocoronary bypass graft; Z92.3 Personal history of irradiation; Z79.01 Long term (current) use of anticoagulants; Z85.51 Personal history of malignant neoplasm of bladder; Z79.899 Other long term (current) drug therapy; Z91.19 Patient's noncompliance with other medical treatment and regimen; Z96.89 Presence of other specified functional implants
CPT/HCPCS: 36415; 80048; 80061; 82962; 83036; 84484; 85025; 85610; 92526; 92610; 93005; 93306; 97110; 97162; 97165; 97802; J7030; Q9957; A4216; C8929